=== PATIENT | female | born 1955 | race Caucasian/White ===

== ENCOUNTER 2025-05-25 13:00 | Outpatient (OUT) | payer MEDICARE, OTHER, SELFPAY ==
--- OUTSIDE RECORDS SUMMARY | 2025-05-15 09:00 | XMS_ITS | Continuity of Care Document ---
Author Organization [employer] [facility] Address [address] [facility] [address] [place] [address] Phone Care Team Providers Care Filling Carrier Name Role Phone Martinez Bethea MD, MD Unavailable Unavailable Allergies, Adverse Reactions, Alerts Substance Reaction Status Criticality doxycycline Active No Information POTASSIUM CLAVULANATE Active No Inf ormation AMOXICILLIN TRIHYDRATE Active No In formation Medications Medication Instructions Dosage Effective Dates (start - stop) Status Comments Ozempic 2 mg/dose (8 mg/3 mL) subcutaneous pen injector inject (2MG) by subcutaneous route every week on the same day of each week 2 MG - Active OZEMPIC 4 MG/3 ML (1 MG/DOSE) INJECT 1 MG SUBCUTANEOUSLY ONE TIME PER WEEK -ON THE SAME DAY EACH WEEK - Active BUPROPION HCL XL 150 MG TABLET TAKE 1 TABLET BY MOUTH EVERY DAY - Active KLAYESTA 100,000 UNIT/GM POWD APPLY TO AFFECTED AREA TWICE A DAY - Active Tresiba FlexTouch U-200 insulin 200 unit/mL (3 mL) subcutaneous pen inject 40 units by subcutaneous route qhs - Active GLIPIZIDE ER 10 MG TABLET TAKE 1 TABLET BY MOUTH EVERY DAY WITH BREAKFAST - Active JARDIANCE 25 MG TABLET TAKE 1 TABLET BY MOUTH EVERY DAY IN THE MORNING - Active GABAPENTIN 300 MG CAPSULE TAKE 1 CAPSULE BY MOUTH EVERYDAY AT BEDTIME - Active POTASSIUM CL ER 10 MEQ TAB WAX TAKE 2 TABLETS BY MOUTH EVERY DAY - Active EpiPen 0.3 mg/0.3 mL injection, auto-injector inject 0.3 milliliter by intramuscular route once as needed for anaphylaxis 0.3 MG - Active FUROSEMIDE 40 MG TABLET TAKE 1 TABLET BY MOUTH EVERY DAY NEEDED - Active NOVOLOG 100 UNIT/ML FLEXPEN INJECT 14 UNITS WITH EACH MEAL - Active BD UF SHORT PEN NEEDLE [id number] INJECT INSULIN 4 TIMES PER DAY DX E11.9 - Active FREESTYLE LITE TEST STRIP USE DIRECTED 3 TIMES A DAY DX E11.9 - Active lisinopril 5 mg tablet take 1 tablet by oral route every day 5 MG - Active metoprolol succinate ER 50 mg tablet,extended release 24 hr take 1 tablet by oral route every day 50 MG - Active loratadine 10 mg tablet take 1 tablet by oral route every day 10 MG - Active ipratropium 0.5 mg-albuterol 3 mg (2.5 mg base)/3 mL nebulization soln inhale 3 milliliter by nebulization route 4 times every day 3.00 milliliter - Active aspirin 81 mg tablet,delayed release take 1 tablet by oral route every day 81 MG - Active CLOTRIMAZOLE-BETAM ETHASONE CRM APPLY TOPICALLY TO THE AFFECTED AREA & SURROUNDING AREAS OF SKIN IN THE MORNING AND EVENING NEEDED - Active albuterol sulfate HFA 90 mcg/actuation aerosol inhaler inhale 2 puff by inhalation route every 4 - 6 hours as needed - Active lancets testing BS TID. DX E11.9 - Active simvastatin 40 mg tablet take 1 tablet by oral route every day in the evening 40 MG - Active Procedures Procedure Date GLYCATED HEMOGLOBIN TEST OFFICE/OUTPATIENT VISIT, EST [facility] 20 MIN [facility] SRVC 20 MIN [facility] 20 MIN [facility] 20 MIN GLYCATED HEMOGLOBIN TEST May-20-2025 Removal Impacted Ear Wax Uni W/O Use Of Instrument OFFICE/OUTPATIENT VISIT, EST Complex e/m visit add on [facility] SRVC 20 MIN [facility] SRVC 20 MIN [facility] SRVC 20 MIN [facility] SRVC 20 MIN GLYCATED HEMOGLOBIN TEST OFFICE/OUTPATIENT VISIT, EST [facility] SRVC 20 MIN [facility] SRVC 20 MIN [facility] SRVC 20 MIN GLYCATED HEMOGLOBIN TEST ADMINISTRATION INFLUENZA VACCINE 2023 FLU VACC PRSV FREE INC ANTIG OFFICE/OUTPATIENT VISIT, EST [facility]VC 20 MIN [facility] SRVC 20 MIN [facility] CARE MGMT SVC EA ADDL [facility] SRVC 20 MIN [facility] MGMT SVC EA ADDL [facility] SRVC 20 MIN GLYCATED HEMOGLOBIN TEST OFFICE/OUTPATIENT VISIT, EST Complex e/m visit add on [facility] SRVC 20 MIN [facility] SRVC 20 MIN [facility] SRVC 20 MIN [facility] SRVC 20 MIN GLYCATED HEMOGLOBIN TEST ADMINISTRATION INFLUENZA VACCINE 2022 FLU VACC PRSV FREE INC ANTIG OFFICE/OUTPATIENT VISIT, EST [facility] SRVC 20 MIN CHR[facility] CARE MGMT SVC EA ADDL [facility] SRVC 20 MIN GLYCATED HEMOGLOBIN TEST OFFICE/OUTPATIENT VISIT, EST GLYCATED HEMOGLOBIN TEST OFFICE/OUTPATIENT VISIT, EST TRANS CARE MGMT 14 DAY DISCH ADMINISTRATION INFLUENZA VACCINE 2021 FLU VACC PRSV FREE INC ANTIG ADMINISTRATION PNEUMOCOCCAL VACCINE PNEUMOCOCCAL VACCINE PPPS, SUBSEQUENT VISIT GLYCATED HEMOGLOBIN TEST OFFICE/OUTPATIENT VISIT, EST OFFICE/OUTPATIENT VISIT, EST INITIAL PREVENTIVE EXAM-MEDICARE 2020 ADMINISTRATION PNEUMOCOCCAL VACCINE PNEUMOCOCCAL VACC, 13 [place] IM GLYCATED HEMOGLOBIN TEST OFFICE/OUTPATIENT VISIT, EST GLYCATED HEMOGLOBIN TEST OFFICE/OUTPATIENT VISIT, EST OFFICE/OUTPATIENT VISIT, EST IMMUNIZATION ADMIN FLU VAC NO PRSV 4 GE[place]ES 3 YRS+ OFFICE/OUTPATIENT VISIT, EST GLYCATED HEMOGLOBIN TEST OFFICE/OUTPATIENT VISIT, EST IMMUNIZATION ADMIN FLU VAC NO PRSV 4 [place] 3 YRS+ OFFICE/OUTPATIENT VISIT, EST GLYCATED HEMOGLOBIN TEST OFFICE/OUTPATIENT VISIT, EST ADMINISTRATION INFLUENZA VACCINE 2017 FLU VAC NO PRSV 4 [place] 3 YRS+ OFFICE/OUTPATIENT VISIT, EST GLYCATED HEMOGLOBIN TEST OFFICE/OUTPATIENT VISIT, EST OFFICE/OUTPATIENT VISIT, EST GLYCATED HEMOGLOBIN TEST OFFICE/OUTPATIENT VISIT, EST REMOVE IMPACTED EAR WAX GLYCATED HEMOGLOBIN TEST Betamethasone acet&sod phosp 3mg 2016 DRAIN/INJECT, JOINT/BURSA OFFICE/OUTPATIENT VISIT, EST IMMUNIZATION ADMIN FLU VAC NO PRSV 4 GEOR[place]ES 3 YRS+ OFFICE/OUTPATIENT VISIT, EST OFFICE/OUTPATIENT VISIT, EST IMMUNIZATION ADMIN FLU VAC NO PRSV 4 GEOR[place]ES 3 YRS+ GLYCATED HEMOGLOBIN TEST METHYLPRENDISONE UP TO 80 MG DRAIN/INJECT, JOINT/BURSA OFFICE/OUTPATIENT VISIT, EST OFFICE/OUTPATIENT VISIT, EST GLYCATED HEMOGLOBIN TEST OFFICE/OUTPATIENT VISIT, EST IMMUNIZATION ADMIN FLU VAC NO PRSV 4 GEOR[place] 3 YRS+ OFFICE/OUTPATIENT VISIT, EST OFFICE/OUTPATIENT VISIT, EST GLYCATED HEMOGLOBIN TEST OFFICE/OUTPATIENT VISIT, EST URINALYSIS, AUTO, W/O SCOPE GLUCOSE BLOOD TEST OFFICE/OUTPATIENT VISIT, EST GLYCATED HEMOGLOBIN TEST IMMUNIZATION ADMIN FLU VAC NO PRSV 4 GEORGES 3 YRS+ OFFICE/OUTPATIENT VISIT, EST IMMUNIZATION ADMIN, EACH ADD PNEUMOCOCCAL VACCINE GLYCATED HEMOGLOBIN TEST INJ TENDON SHEATH/LIGAMENT METHYLPRENDISONE UP TO 40 MG OFFICE/OUTPATIENT VISIT, EST Doc meds verified w/pt or re PT TOBACCO SCREEN RCVD TLK Sys BP less 140 Bustamante BP less 90 HG A1C LEVEL 7.0-9.0% LDL-C >= 130 MG/DL NEG MICROALBUMINURIA REV Pt rec CHARLINE/ARB GLYCATED HEMOGLOBIN TEST OFFICE/OUTPATIENT VISIT, EST FLU VACCINE NO PRESERV 3 & > IMMUNIZATION ADMIN OFFICE/OUTPATIENT VISIT, EST Results Test Name Date and Time Measure Units Reference Range Abnormal Flag Status Commen ts Panel Description: Hemoglobin A1c/Hemoglobin.tot al in Blood Final Hgb A1C % 13:13:00 6.6 Final Advance Directives Directive Yes / No Effective Date File Name No Information Encounters Encounter Description Practice Location Reason(s) For Visit Diagnoses Date Provider Providers Copied on Encounter OFFICE/OUTPA TIENT VISIT, EST [employer] [facility], [address] [facility], [place], [place], [id number] , [place] tel: [phone] [facility] follow up (chief complaint) Essential (primary) hypertensionStage 3a chronic kidney disease (CKD)Type 2 diabetes mellitus with diabetic polyneuropathy, with long-term current use of insulinLong term (current) use of insulin Oct-2 0 5 [place]. [address], [place], [place], [address] , [place]. tel: [phone] Referring Provider: Martinez Vizcaino, [address], [place], [address] . tel:[phone] [employer] [facility], [address] [place] [address] [address], [place], [place], [address] , [place] tel: [phone] [facility] No Information 5 [place]. [address], [place], [place], [address] , [place]. tel: [phone] [facility] SRVC 20 MIN [facility] [employer] [facility], [address] [place] [address] [address], [place], [place], [address] , [place] tel: [phone] [facility] No Information 5 [place]. [address], [place], [place], [address] , [place]. tel: [phone] Referring Provider: Martinez Vizcaino, [address], [place], [address] . tel:[phone] [employer] [facility], [address] [place] [address] [address], [place], [place], [address] , [place] tel: [phone] [facility] No Information 5 [place]. [address], [place], [place], [address] , [place]. tel: [phone] [employer] [facility], [address] [place] [address] [address], [place], [place], [address] , [place] tel: [phone] [facility] No Information 5 [place]. [address], [place], [place], [address] , [place]. tel: [phone] [facility] 20 [facility], [address] [place] [address] Road [address], [place], [place], [address] , [place] tel: [phone] [facility] No Information 5 [place]. [address], [place], [place], [address] , [place]. tel: [phone] Referring Provider: Martinez Vizcaino, [address], [place], [address] . tel:[phone] [facility] [address] [facility], [address] [place] [address] [address], [place], [place], [address] , [place] tel: [phone] [facility] No Information 5 [place]. [address], [place], [place], [address] , [place]. tel: [phone] Referring Provider: Martinez Vizcaino, [address], [place], [address] . tel:[phone] [facility], [address] [place] [address] [address], [place], [place], [address] , [place] tel: [phone] [facility] No Information 5 [place]. [address], [place], [place], [address] , [place]. tel: [phone] [facility] [address] [facility], [address] [place] [address] [address], [place], [place], [address] , [place] tel: [phone] [facility] No Information 5 [place]. [address], [place], [place], [address] , [place]. tel: [phone] Referring Provider: Martinez Vizcaino, [address], [place], [address] . tel:[phone] OFFICE/OUTPA TIENT VISIT, [facility], [address] [place] [address] [address], [place], [place], [address] , [place] tel: [phone] [facility] chronic conditions (chief complaint) Type 2 diabetes mellitus with diabetic nephropathy, with long-term current use of insulinBreast cancer screeningCigarette smokerImpacted cerumen, right ear 5 [place]. [address], [place], [place], [address] , [place]. tel:[phone] Referring Provider: Martinez Vizcaino, [address], [place], [address] . tel:[phone] [place] [address], [address] [place] [address] [address], [place], [place], [address] , [place] tel:[phone] [facility] No Information 5 [place]. [address], [place], [place], [address] , [place]. tel:[phone] [facility] [address], [address] [place] [address] [address], [place], [place], [address] , [place] tel:[phone] [facility] No Information 5 [place]. [address], [place], [place], [address] , [place]. tel:[phone] Referring Provider: Martinez Vizcaino, [address], [place], [address] . tel:[phone], [address] [place] [address] [address], [place], [place], [address] , [place] tel:[phone] [facility] No Information 5 [place]. [address], [place], [place], [address] , [place]. tel:[phone] Referring Provider: Martinez Vizcaino, [address], [place], [address] . tel:[phone] [facility] [address], [address] [place] [address] [address], [place], [place], [address] , [place] tel: [phone] [facility] No Information 5 [place]. [address], [place], [place], [address] , [place]. tel: [phone] Referring Provider: Martinez Vizcaino, [address], [place], [address] . tel:[phone] [place] [address], [address] [place] [address] [address], [place], [place], [address] , [place] tel:[phone] [facility] No Information 5 [place]. [address] [facility] [address], [place], [place], [address] , [place]. tel:[phone], [address] [place] [address] [address], [place], [place], [address] , [place] tel: [phone] [facility] No Information 5 [place]. [address] [facility] [address], [place], [place], [address] , [place]. tel:[phone] Referring Provider: Martinez Vizcaino, [address], [place], [address] . tel:[phone] OFFICE/OUTPA TIENT VISIT, [facility], [address] [place] [address] [address], [place], [place], [address] , [place] tel: [phone] [facility] chronic conditions (chief complaint) HypomagnesemiaType 2 diabetes mellitus with diabetic nephropathy, with long-term current use of insulin 5 [place]. [address], [place], [place], [address] , [place]. tel:[phone] Referring Provider: Martinez Vizcaino, [address], [place], [address] . tel:[phone] [facility] SRVC [address] [place] [address], [address] [place] [address] Road [address], [place], [place], [address] , [place] tel: [phone] [facility] No Information 4 [place]. [address], [place], [place], [address] , [place]. tel:[phone] Referring Provider: Martinez Vizcaino, [address], [place], [address] . tel:[phone] [facility] [address], [address] [place] [address] [address], [place], [place], [address] , [place] tel:[phone] [facility] No Information 4 [place]. [address], [place], [place], [address] , [place]. tel:[phone] Referring Provider: Martinez Vizcaino, [address], [place], [address] . tel:[phone] [facility] [address], [address] [place] [address] Road [address], [place], [place], [address] , [place] tel: [phone] [facility] No Information 4 [place]. [address], [place], [place], [address] , [place]. tel:[phone] Referring Provider: Martinez Vizcaino, [address], [place], [address] . tel:[phone] OFFICE/OUTPA TIENT VISIT, [facility], [address], [place], [place], [address] , [place] tel: [phone] [facility] chronic conditions (chief complaint) Type 2 diabetes mellitus with diabetic nephropathy, with long-term current use of insulinEssential (primary) hypertension 4 [place]. [address], [place], [place], [address] , [place]. tel:[phone] Referring Provider: Martinez Vizcaino, [address], [place], [address] . tel:[phone] [facility], [address] [place] [address] [address], [place], [place], [address] , [place] tel: [phone] [facility] No Information 4 [place]. [address], [place], [place], [address] , [place]. tel: [phone] [facility] [address] [facility], [address] [place] [address] [address], [place], [place], [address] , [place] tel: [phone] [facility] No Information 4 [place]. [address], [place], [place], [address] , [place]. tel:[phone] Referring Provider: Martinez Vizcaino, [address], [place], [address] . tel:[phone], [address] [place] [address] [address], [place], [place], [address] , [place] tel:[phone] [facility] No Information 4 [place]. [address], [place], [place], [address] , [place]. tel:[phone] Referring Provider: Martinez Vizcaino, [address], [place], [address] . tel:[phone] [employer] [facility], [address] [place] [address] [address], [place], [place], [address] , [place] tel: [phone] [facility] No Information [address] [place]. [address] [facility] [address], [place], [place], [address] , [place]. tel: [phone] [facility] [address], [address] [place] [address] [address], [place], [place], [address] , [place] tel: [phone] [facility] No Information [address] [place]. [address], [place], [place], [address] , [place]. tel: [phone] Referring Provider: Martinez Vizcaino, [address] [place] [address] [address], [place], [address] . tel:[phone] [facility] [address], [address] [place] [address] [address], [place], [place], [address] , [place] tel: [phone] [facility] No Information 4 [place]. [address] [facility] [address], [place], [place], [address] , [place]. tel:[phone] Referring Provider: Martinez Vizcaino, [address] [place] [address] Rd [address], [place], [address] . tel:[phone] OFFICE/OUTPA TIENT VISIT, [facility], [address] [place] [address] [address], [place], [place], [address] , [place] tel: [phone] [facility] f/u (chief complaint) Type 2 diabetes mellitus with diabetic nephropathy, with long-term current use of insulinStage 3a chronic kidney disease (CKD) 4 [place]. [address] [facility] [address], [place], [place], [address] , [place]. tel:[phone] Referring Provider: Martinez Vizcaino, [address] [place] [address] [address], [place], [address] . tel:[phone] [facility] 20 [facility], [address], [place], [place], [address] , [place] tel: [phone] [facility] No Information 4 [place]. [address], [place], [place], [address] , [place]. tel:[phone] Referring Provider: Martinez Vizcaino, [address], [place], [address] . tel:[phone] [facility] [address] [facility], [address] [place] [address] [address], [place], [place], [address] , [place] tel: [phone] [facility] No Information [address] [place]. [address], [place], [place], [address] , [place]. tel:[phone] Referring Provider: Martinez Vizcaino, [address], [place], [address] . tel:[phone] [facility], [address] [place] [address] [address], [place], [place], [address] , [place] tel:[phone] [facility] No Information 4 [place]. [address], [address], [place], [place], [address] , [place]. tel:[phone] [facility] 20 [facility], [address], [place], [place], [address] , [place] tel:[phone] [facility] No Information [address] [place]. [address], [place], [place], [address] , [place]. tel:[phone] Referring Provider: Martinez Vizcaino, [address] [place] [address] Rd [address], [place], [address] . tel:[phone] [facility] [address] [facility], [address] [place] [address] [address], [place], [place], [address] , [place] tel:[phone] [facility] No Information [address] [place]. [address] [facility] [address], [place], [place], [address] , [place]. tel:[phone] Referring Provider: Martinez Vizcaino, [address] [place] [address] [address], [place], [address] . tel:[phone] OFFICE/OUTPA TIENT VISIT, [facility], [address] [place] [address] [address], [place], [place], [address] , [place] tel:[phone] [facility] f/u (chief complaint) Breast cancer screeningCigarette smokerInfluenza vaccine administeredType 2 diabetes mellitus without complication, with long-term current use of insulinAcute pain of right shoulder 3 [place]. [address] [facility] [address], [place], [place], [address] , [place]. tel:[phone] Referring Provider: Martinez Vizcaino, [address] [place] [address] [address], [place], [address] . tel:[phone] [facility] [address], [address] [place] [address] [address], [place], [place], [address] , [place] [phone] [facility] No Information [address] [place]. [address] [facility] [address], [place], [place], [address] , [place]. tel:[phone] Referring Provider: Martinez Vizcaino, [address] [place] [address] [address], [place], [address] . tel:[phone], [address] [place] [address] [address], [place], [place], [address] , [place] [phone] [facility] No Information [address] [place]. [address] [facility] [address], [place], [place], [address] , [place]. tel:[phone] Referring Provider: Martinez Vizcaino, [address] [facility] [address], [place], [address] . tel:[phone] OFFICE/OUTPA TIENT VISIT, [facility], [address] [place] [address] [address], [place], [place], [address] , [place] tel: [phone] [facility] DM f/u (chief complaint) Type 2 diabetes mellitus with hyperglycemia, with long-term current use of insulinAcute systolic heart failure 3 [place]. [address] [facility] [address], [place], [place], [address] , [place]. tel:[phone] Referring Provider: Martinez Vizcaino, [address], [place], [address] . tel:[phone] [place] [address], [address] [place] [address] [address], [place], [place], [address] , [place] tel:[phone] [facility] No Information [address] [place]. [address] [facility] [address], [place], [place], [address] , [place]. tel:[phone] OFFICE/OUTPA TIENT VISIT, [facility], [address] [place] [address] [address], [place], [place], [address] , [place] tel: [phone] [facility] chronic conditions (chief complaint) Type 2 diabetes mellitus with hyperglycemia, with long-term current use of insulinGastroesopha geal reflux disease, unspecified whether esophagitis presentAcute systolic heart failure 3 [place]. [address] [facility] [address], [place], [place], [address] , [place]. tel:[phone] Referring Provider: Martinez Vizcaino, [address], [place], [address] . tel:[phone] [facility] 14 DAY [facility], [address] [place] [address] [address], [place], [place], [address] , [place] tel: [phone] [facility] TCM (chief complaint) Type 2 diabetes mellitus without complication, with long-term current use of insulinAcute systolic heart failureTobacco abuse 3 [place]. [address], [place], [place], [address] , [place]. tel: [phone] Referring Provider: Martinez Vizcaino, [address], [place], [address] . tel:[phone] [employer] [facility], [address] [place] [address] [address], [place], [place], [address] , [place] tel: [phone] [facility] No Information [address] [place]. [address] [facility] [address], [place], [place], [address] , [place]. tel: [phone] [employer] [facility], [address] [place] [address] [address], [place], [place], [address] , [place] tel: [phone] [facility] medicare preventive (chief complaint)AW V (chief complaint) Influenza vaccination givenMedicare annual wellness visit, subsequentType 2 diabetes mellitus without complication, with long-term current use of insulinEssential (primary) hypertensionBreast cancer screeningTobacco abuseHypocalcemiaHy pomagnesemiaColon cancer screeningChronic obstructive pulmonary disease, unspecified COPD typeModerate major depression 2 [place]. [address] [facility] [address], [place], [place], [address] , [place]. tel: [phone] Referring Provider: Martinez Vizcaino, [address] [facility] [address], [place], [address] . tel:[phone] [employer] [facility], [address] [place] [address] [address], [place], [place], [address] , [place] tel: [phone] [facility] No Information [address] [place]. [address] [facility] [address], [place], [place], [address] , [place]. tel: [phone] OFFICE/OUTPA TIENT VISIT, [facility], [address] [place] [address] [address], [place], [place], [address] , [place] tel: [phone] [facility] Hospital med refill, DM (chief complaint) Type 2 diabetes mellitus without complication, with long-term current use of insulinEssential (primary) hypertensionChronic obstructive pulmonary disease, unspecified COPD typeImpacted cerumen, right ear Fe 2 [place]. [address] [facility] [address], [place], [place], [address] , [place]. tel: [phone] Referring Provider: Martinez Vizcaino, [address] [place] [address] [address], [place], [address] . tel:[phone] [place] [address], [address] [place] [address] [address], [place], [place], [address] , [place] tel: [phone] [facility] No Information 2 [place]. [address] [facility] [address], [place], [place], [address] , [place]. tel: [phone] OFFICE/OUTPA TIENT VISIT, [facility], [address] [place] [address] [address], [place], [place], [address] , [place] tel: [phone] [facility] R ear infection (chief complaint) Hearing loss of left ear, unspecified hearing loss type 1 [place]. [address] [facility] [address], [place], [place], [address] , [place]. tel: [phone] Referring Provider: Martinez Vizcaino, [address] [place] [address] [address], [place], [address] . tel:[phone] [facility], [address] [place] [address] [address], [place], [place], [address] , [place] tel: [phone] [facility] medicare preventive (chief complaint) Medicare welcome examEssential (primary) hypertensionHyperch olesterolemiaModera te major depressionType 2 diabetes mellitus without complication, with long-term current use of insulinLong term (current) use of insulinMultinodular goiterTobacco abuseOsteoporosis screeningPost-menop ausalColon cancer screeningPrimary osteoarthritis of right hip 1 [place]. [address], [place], [place], [address] , [place]. tel: [phone] Referring Provider: Martinez Vizcaino, [address], [place], [address] . tel:[phone] [facility], [address] [place] [address] [address], [place], [place], [address] , [place] tel: [phone] [facility] No Information 1 [place]. [address], [place], [place], [address] , [place]. tel: [phone] [facility], [address] [place] [address] [address], [place], [place], [address] , [place] tel: [phone] [facility] No Information 1 [place]. [address] [facility] [address], [place], [place], [address] , [place]. tel:[phone] OFFICE/OUTPA TIENT VISIT, [facility], [address] [place] [address] [address], [place], [place], [address] , [place] tel: [phone] [facility] chronic conditions (chief complaint) Type 2 diabetes mellitus without complication, with long-term current use of insulinLong term (current) use of insulinModerate major depressionHyperchol esterolemiaEssentia l (primary) hypertension 1 [place]. [address], [place], [place], [address] , [place]. tel:[phone] Referring Provider: Martinez Vizcaino, [address], [place], [address] . tel:[phone] OFFICE/OUTPA TIENT VISIT, [facility], [address] [place] [address] [address], [place], [place], [address] , [place] tel: [phone] [facility] chronic conditions (chief complaint) Essential (primary) hypertensionHyperch olesterolemiaPrimar y localized osteoarthritis of left hipType 2 diabetes mellitus with hyperglycemia, with long-term current use of insulinLong term (current) use of insulinCurrent moderate episode of major depressive disorder without prior episode Nov-0 0 [place]. [address] [facility] [address], [place], [place], [address] , [place]. tel: [phone] Referring Provider: Martinez Vizcaino, [address] [place] [address] [address], [place], [address] . tel:[phone] OFFICE/OUTPA TIENT VISIT, [facility], [address] [place] [address] [address], [place], [place], [address] , [place] tel: [phone] [facility] f/u zoloft (chief complaint)re fill simvastatin (chief complaint) Major depressive disorder, single episode, moderate Sep-0 0 [place]. [address] [facility] [address], [place], [place], [address] , [place]. tel: [phone] Referring Provider: Martinez Vizcaino, [address] [place] [address] [address], [place], [address] . tel:[phone] OFFICE/OUTPA TIENT VISIT, [facility], [address] [place] [address] [address], [place], [place], [address] , [place] tel: [phone] [facility] chronic conditions (chief complaint) Current moderate episode of major depressive disorder without prior episodeEssential (primary) hypertensionHyperch olesterolemiaType 2 diabetes mellitus without complication Aug- 0 [place]. [address] [facility] [address], [place], [place], [address] , [place]. tel: [phone] Referring Provider: Martinez Vizcaino, [address], [place], [address] . tel:[phone] OFFICE/OUTPA TIENT VISIT, [facility], [address] [place] [address] [address], [place], [place], [address] , tel: [phone] [facility] chronic conditions (chief complaint) Type 2 diabetes mellitus without complicationEssenti al (primary) hypertensionHyperch olesterolemiaBreast cancer screeningMultinodul ar goiterPrimary localized osteoarthritis of left hip 0 0 [place]. [address] [facility] [address], [place], [place], [address] , [place]. tel: [phone] Referring Provider: Martinez Vizcaino, [address] [place] [address] [address], [place], [address] . tel:[phone] [facility], [address] [place] [address] [address], [place], [place], [address] , tel: [phone] [facility] flu vaccine (chief complaint) No Information [place]. [address] [facility] [address], [place], [place], [address] , [place]. tel:[phone] Referring Provider: Martinez Vizcaino, [address] [facility] [address], [place], [address] . tel:[phone] OFFICE/OUTPA TIENT VISIT, [facility], [address] [place] [address] [address], [place], [place], [address] , [place] tel: [phone] [facility] chronic conditions (chief complaint) Essential (primary) hypertensionHyperch olesterolemiaType 2 diabetes mellitus without complicationBreast cancer screeningMultinodul ar goiter [place]. [address] [facility] [address], [place], [place], [address] , [place]. tel:[phone] Referring Provider: Martinez Vizcaino, [address] [place] [address] [address], [place], [address] . tel:[phone] OFFICE/OUTPA TIENT VISIT, [employer] [place] [employer] [facility], [address] [place] [address] [address], [place], [place], [address] , [place] tel: [phone] [facility] chronic conditions (chief complaint) Essential (primary) hypertensionHyperch olesterolemiaType 2 diabetes mellitus without complicationLeg crampsMeralgia paresthetica of left side 9 [place]. [address] [facility] [address], [place], [place], [address] , [place]. tel: [phone] Referring Provider: Martinez Vizcaino, [address] [place] [address] [address], [place], [address] . tel:[phone] OFFICE/OUTPA TIENT VISIT, [employer] [facility], [address] [place] [address] [address], [place], [place], [address] , [place] tel: [phone] [facility] chronic conditions (chief complaint) Essential (primary) hypertensionPrimary osteoarthritis of right hipPrimary localized osteoarthritis of left hipHypercholesterol emiaType 2 diabetes mellitus without complicationThyroid noduleGastroesophag eal reflux disease, esophagitis presence not specified 8 [place]. [address] [facility] [address], [place], [place], [address] , [place]. tel: [phone] Referring Provider: Martinez Vizcaino, [address] [facility] [address], [place], [address] . tel:[phone] OFFICE/OUTPA TIENT VISIT, [employer] [facility], [address] [place] [address] [address], [place], [place], [address] , [place] tel: [phone] [facility] chronic conditions (chief complaint) Essential (primary) hypertensionHypokal emiaHypocalcemiaHyp ercholesterolemiaTy pe 2 diabetes mellitus without complicationThyroid noduleBreast cancer screening 8 [place]. [address] [facility] [address], [place], [place], [address] , [place]. tel: [phone] Referring Provider: Martinez Vizcaino, [address], [place], [address] . tel:[phone] OFFICE/OUTPA TIENT VISIT, [facility] [employer] (formerly [employer]) [facility], [address], [place], [place], [address] , [place] tel: [phone] [facility] chronic conditions (chief complaint) Primary osteoarthritis of right hipPrimary localized osteoarthritis of left hip Oct- [place]. [address], [place], [place], [address] , [place]. tel: [phone] Referring Provider: Martinez Vizcaino, [address], [place], [address] . tel:[phone] OFFICE/OUTPA TIENT VISIT, [facility] [employer] ([employer]) [facility], [address] [place] [address] [address], [place], [place], [address] , [place] tel: [phone] [facility] chronic conditions (chief complaint) Essential (primary) hypertensionHypokal emiaHypocalcemiaHyp ercholesterolemiaTy pe 2 diabetes mellitus without complicationImpacte d cerumen of left ear [place]. [address], [place], [place], [address] , [place]. tel: [phone] Referring Provider: Martinez Vizcaino, [address], [place], [address] . tel:[phone] [employer] [facility], [address] [place] [address] [address], [place], [place], [address] , [place] tel: [phone] [facility] HypocalcemiaHypokal emia Jun- [place]. [address], [place], [place], [address] , [place]. tel: [phone] [employer] ([employer] [facility] [employer] [facility], [address] [place] [address] [address], [place], [place], [address] , [place] tel: [phone] [facility] Hypocalcemia Dec-2 7 [place]. [address] [facility] [address], [place], [place], [address] , [place]. tel: [phone] OFFICE/OUTPA TIENT VISIT, [facility], [address] [place] [address] [address], [place], [place], [address] , [place] tel: [phone] [facility] chronic conditions (chief complaint) Essential (primary) hypertensionHypokal emiaHypercholestero lemiaType 2 diabetes mellitus without complicationTrochan teric bursitis of left hipLeg crampsBreast cancer screeningUpper respiratory tract infection, unspecified type Mar-0 7 [place]. [address] [facility] [address], [place], [place], [address] , [place]. tel: [phone] Referring Provider: Martinez Vizcaino, [address] [place] [address] A, [place], [address] . tel:[phone] OFFICE/OUTPA TIENT VISIT, [facility], [address] [place] [address] [address], [place], [place], [address] , [place] tel: [phone] [facility] chronic conditions (chief complaint) HypokalemiaType 2 diabetes mellitus without complicationEssenti al (primary) hypertensionTobacco abuseSkin lesionMuscle cramps November-0 7 [place]. [address] [facility] [address], [place], [place], [address] , [place]. tel: [phone] Referring Provider: Martinez Vizcaino, [address] [place] [address] [address], [place], [address] . tel:[phone] OFFICE/OUTPA TIENT VISIT, [facility], [address] [place] [address] [address], [place], [place], [address] , [place] tel: [phone] [facility] chronic conditions (chief complaint) Other bursitis of hip, left hipEssential (primary) hypertensionType 2 diabetes mellitus without complicationHyperch olesterolemiaMuscle cramps Nov-0 7-201 6 [place]. [address] [facility] [address], [place], [place], [address] , [place]. tel: [phone] Referring Provider: Martinez Vizcaino, [address] [place] [address] Rd [address], [place], [address] . tel:[phone] OFFICE/OUTPA TIENT VISIT, [employer] [facility], [address] [place] [address] [address], [place], [place], [address] , [place] tel: [phone] [facility] chronic conditions (chief complaint)hy pertension (chief complaint)di abetes (chief complaint) Essential (primary) hypertensionHyperch olesterolemiaThyroi d noduleType 2 diabetes mellitus without complicationOther bursitis of hip, left hip 6 [place]. [address] [facility] [address], [place], [place], [address] , [place]. tel: [phone] Referring Provider: Martinez Vizcaino, [address] [place] [address] [address], [place], [address] . tel:[phone] OFFICE/OUTPA TIENT VISIT, [employer] [place] [employer] [facility], [address] [place] [address] [address], [place], [place], [address] , [place] tel: [phone] [facility] chronic conditions (chief complaint) Essential (primary) hypertensionHyperch olesterolemiaType 2 diabetes mellitus without complicationBreast cancer screeningThyroid noduleLumbar stenosisColon polypsHypokalemia 6 [place]. [address] [facility] [address], [place], [address] , [place]. tel: [phone] Referring Provider: Martinez Vizcaino, [address] [place] [address] [address], [place], [address] . tel:[phone] OFFICE/OUTPA TIENT VISIT, [employer] [facility], [address] [place] [address] Road [address], [place], [place], [address] , [place] tel: [phone] [facility] chronic conditions (chief complaint) Hypercholesterolemi aType 2 diabetes mellitus without complicationEssenti al (primary) hypertensionLumbar stenosis 6 [place]. [address] [facility] [address], [place], [place], [address] , [place]. tel: [phone] Referring Provider: Martinez Vizcaino, [address] [facility] [address], [place], [address] . tel:[phone] OFFICE/OUTPA TIENT VISIT, [employer] [place] [employer] [facility], [address] [place] [address] [address], [place], [place], [address] , [place] tel: [phone] [facility] chronic conditions (chief complaint) Diabetes mellitus without mention of complication, type II or unspecified type, not stated as uncontrolledEsophag eal refluxOther and unspecified hyperlipidemiaEssen tial hypertension, benign [place]. [address] [facility] [address], [place], [place], [address] , [place]. tel: [phone] Referring Provider: Martinez Vizcanio, [address] [facility] [address], [place], [address] . tel:[phone] OFFICE/OUTPA TIENT VISIT, [facility], [address] [place] [address] [address], [place], [place], [address] , [place] tel: [phone] [facility] B hip/ BLE pain (chief complaint) Bilateral hip bursitisLumbar stenosis 5 [place]. [address] [facility] [address], [place], [place], [address] , [place]. tel: [phone] Referring Provider: Martinez Vizcaino, [address] [place] [address] [address], [place], [address] . tel:[phone] OFFICE/OUTPA TIENT VISIT, [facility], [address] [place] [address] [address], [place], [place], [address] , [place] tel: [phone] [facility] chronic conditions (chief complaint) Diabetes Mellitus Type 2, UncomplicatedLeg crampsEustachian tube dysfunction Apr-2 0 5 [place]. [address], [place], [place], [address] , [place]. tel:[phone] Referring Provider: Martinez Vizcaino, [address] [place] [address] Rd [address], [place], [address] . tel:[phone] OFFICE/OUTPA TIENT VISIT, [facility], [address] [facility] [address], [place], [place], [address] , [place] tel:[phone] [facility] midsection pain (chief complaint) Urinary frequencyDiabetes Mellitus Type 2, UncomplicatedLBP (low back pain) 5 [place]. [address], [place], [place], [address] , [place]. tel:[phone] Referring Provider: Martinez Vizcaino, [address] [place] [address] [address], [place], [address] . tel:[phone] OFFICE/OUTPA TIENT VISIT, [employer] [place] [employer] [facility], [address] [place] [address] [address], [place], [place], [address] , [place] tel:[phone] [facility] chronic conditions (chief complaint) Diabetes mellitus without mention of complication, type II or unspecified type, not stated as uncontrolledEssenti al hypertension, benignHypercholeste rolemiaLateral epicondylitis of elbowLeg cramps 4 [place]. [address], [place], [place], [address] , [place]. tel:[phone] Referring Provider: Martinez Vizcaino, [address] [place] [address] Rd [address], [place], [address] . tel:[phone] OFFICE/OUTPA TIENT VISIT, [employer] [facility], [address] [facility] [address], [place], [place], [address] , [place] tel:[phone] [facility] chronic conditions (chief complaint) Diabetes mellitus without mention of complication, type II or unspecified type, not stated as uncontrolledHyperch olesterolemiaHypert ensionTrigger fingerBreast cancer screening 4 [place]. [address] [facility] [address], [place], [place], [address] , [place]. tel: [phone] Referring Provider: Martinez Vizcaino, [address] [facility] [address], [place], [address] . tel:[phone] OFFICE/OUTPA TIENT VISIT, [facility], [address] [place] [address] [address], [place], [place], [address] , [place] tel: [phone] [facility] chronic conditions (chief complaint)R hand pain (chief complaint)di arrhea (chief complaint) Diabetes mellitus without mention of complication, type II or unspecified type, not stated as uncontrolledHyperch olesterolemiaDiarrh eaHypertension 4 [place]. [address] [facility] [address], [place], [place], [address] , [place]. tel: [phone] Referring Provider: Martinez Vizcaino, [address] [facility] [address], [place], [address] . tel:[phone] [place] [address], [address] [place] [address] [address], [place], [place], [address] , [place] tel: [phone] [facility] Influenza Vaccine 3 [place]. [address] [facility] [address], [place], [place], [address] , [place]. tel: [phone] [facility], [address] [place] [address] [address], [place], [place], [address] , [place] tel: [phone] [facility] Diabetes Mellitus Type 2, UncomplicatedGERDHy percholesterolemia 3 [place]. [address] [facility] [address], [place], [place], [address] , [place]. tel: [phone] OFFICE/OUTPA TIENT VISIT, [facility], [address] [place] [address] [address], [place], [place], [address] , [place] tel: [phone] [facility] No Information [place]. [address] [facility] [address], [place], [place], [address] , [place]. tel: [phone] Referring Provider: Martinez Vizcaino, [address] [facility] [address], [place], [address] . tel:[phone] Family History Family Member Type Diagnosis Age At Onset No Information Immunizations Vaccine Date Status Comments Fluzone HD administered Source: New Imm unization Record FLUZONE HIGH-DOSE QUAD administer ed Source: New Immunization Record Pneumo (2 yrs or older) (PPV23) administered Source: New Immuniza tion Record Influenza, quadrivalent, hig h dose, injectable, split virus, preservative free, 0.7 mL dose, Fluzone High-Dose Quad administered Source: New Immuniza tion Record Zostavax administered Source: Other P rovider Zostavax administered Source: Other P rovider SARS-COV-2 (COVID-19) vaccin e, vector non-replicating, recombinant spike protein-Ad26, preservative free, 0.5 mL ([employer]) administered Source: Other Pro vider Prevnar administered Source: New Imm unization Record SARS-COV-2 (COVID-19) vaccin e, mRNA, spike protein, LNP, preservative free, 30 mcg/0.3mL dose (Solvate) administered Source: Other Pr ovider SARS-COV-2 (COVID-19) vaccin e, mRNA, spike protein, LNP, preservative free, 30 mcg/0.3mL dose (Solvate) administered Source: Other Pr ovider Influenza, injectable, quadrivalent, preservative free, 3 yrs or older administered Source: New Immuniz ation Record Flu Vaccine [id number] administered Source : New Immunization Record FLUZONE QUAD administered Sourc e: New Immunization Record Influenza, injectable, quadrivalent, preservative free, 3 yrs or older administered Note: pt tolerated well ; Source: New Immunization Record Influenza, injectable, quadrivalent, preservative free, split virus 3 years or older, Fluarix Quad administered Note: pt t olerated well ; Source: New Immunization Record Fluarix administered Source: New Imm unization Record Zoster administered Note: Invalid d ocumented admin date was /NULL/2014. ; Source: Other Provider Pneumo (2 yrs or older) (PPV23) administered Source: New Immuniza tion Record Fluarix administered Source: New Imm unization Record flu (split) preservative jason e, 3 yrs or older administered Source: New Immuniza tion Record Payers Payer name Insurance type Covered democrat ID Authoriza tion(s) Medicare MB [id number] [employer] CI [id number] Medicare MB [id number] [employer] CI [id number] Medicare MB [id number] [employer] CI [id number] Medicare MB [id number] [employer] CI [id number] Medicare MB [id number] [employer] CI [id number] Medicare MB [id number] [employer] CI [id number] [employer] CI [id number] [employer] CI [id number] [employer] CI [id number] [employer] CI [id number] [employer] CI [id number] [employer] CI [id number] [employer] CI [id number] [employer] CI [id number] Social History Type Description Quantity Date Captured Comments Alcohol Use Details No Caffeine Use Details Unknown Tobacco Use Status Smoking Status Heavy tobacco smoker Sex Female Vital Signs Date / Time: Height Weight BMI Pulse Rate Blood Pressure Temperature Respiratory Rate Body Surface Area Head Circumference Head Circ. Percentile Wt./Apolinar. Percentile BMI percentile Pulse Ox Inhaled Ox 12:59 PM 65.00 in 109.769 kg (242.00 lbs) 40.2 7 kg/m eter (2) 85 /min 138/84 mm[Hg] 98 % Chief Complaint And Reason For Visit From encounter dated '05/15/2025 13:00'. follow up (chief complaint). Description: Reviewed labs 12/08/24. Last DEXA 03/27/21. Last mammogram 10/09/23.DM - Last A1C 6.6% on 12/13/24. Last eye exam 04/824, no retinopathy.Depression, CKD - Taking medication as prescribedHTN, Heart Failure, Hypercholesterolemia - Managed by cardiologystates it feels like she is [facility] Reason For Referral Reason For Referral No Information Plan Of Treatment Date Type Action Status Goal ECG. Due on due Goal Foot exam. Due on due Goal Dilated eye exam. Due on Apr due Goal Dental exam. Due on 025 due Goal Tobacco screening. Due on Oc due Goal [employer] ADMINISTRATOR/Breast exam. Due on due Goal Zoster vaccine (1st) due Goal Td vaccine. Due on due Goal Zoster vaccine (2nd) due Goal Pneumococcal vaccine. Due on due Goal Influenza vaccine. Due on Oc due Goal Microalb/Creat Ratio, Randm Ur. Due on due Goal IFOB. Due on due Goal FIT. Due on due Goal Pap liquid based for cytolog y. Due on due Goal Cytology report of Cervical and vaginal smear or scraping Cyto stain. Due on due Goal FOBT. Due on due Goal FIT-DNA. Due on due Goal Glucose. Due on due Goal Hepatitis C screening. Due o n due Goal Pap/HPV testing. Due on due Goal Diabetes screening. Due on O due Goal BMP. Due on due Goal URINALYSIS NONAUTO W/O SCOPE . Due on due Goal Unhealthy drug use screening . Due on due Goal Depression screening. Due on due Goal EKG. Due on due Goal Mammogram. Due on due Goal Colonoscopy. Due on 025 due Goal Digital Mammogram Screening. Due on due Goal CT-Colonography. Due on due Goal Hemoglobin A1C. Due on due Goal Urine microalbumin. Due on O due Goal ASCVD 10 year risk. Due on O due Goal Monofilament. Due on 2024 due Goal pouncer machine. Due on Oc due Goal GFR. Due on due Goal pouncer machine. Due on Au due Goal FIT-DNA. Due on due Goal FIT. Due on due Goal IFOB. Due on due Goal Glucose. Due on due Goal BMP. Due on due Goal Diabetes screening. Due on A due Goal GFR. Due on due Goal Urine microalbumin. Due on A due Goal Microalb/Creat Ratio, Randm Ur. Due on due Goal Hemoglobin A1C. Due on due Goal URINALYSIS NONAUTO W/O SCOPE . Due on due Goal ASCVD 10 year risk. Due on A due Goal Unhealthy drug use screening . Due on due Goal Depression screening. Due on due Goal Pap/HPV testing. Due on due Goal Pap liquid based for cytolog y. Due on due Goal Digital Mammogram Screening. Due on due Goal EKG. Due on due Goal Colonoscopy. Due on due Goal Mammogram. Due on due Goal CT-Colonography. Due on due Goal ECG. Due on due Goal Dental exam. Due on due Goal LINUX NETWORK ADMINISTRATOR/Breast exam. Due on due Goal Tobacco screening. Due on due Goal Foot exam. Due on due Goal Monofilament. Due on 2024 due Goal Dilated eye exam. Due on Apr due Goal Zoster vaccine (2nd) due Goal Zoster vaccine (1st) due Goal Td vaccine. Due on due Goal Pneumococcal vaccine. Due on due Goal Influenza vaccine. Due on due Goal Hepatitis C screening. Due o n due Goal FOBT. Due on due Goal Cytology report of Cervical and vaginal smear or scraping Cyto stain. Due on due Goal Pap liquid based for cytolog y. Due on due Goal Cytology report of Cervical and vaginal smear or scraping Cyto stain. Due on due Goal FOBT. Due on due Goal Glucose. Due on due Goal IFOB. Due on due Goal BMP. Due on due Goal Hepatitis C screening. Due o n due Goal Pap/HPV testing. Due on due Goal FIT-DNA. Due on due Goal FIT. Due on due Goal Diabetes screening. Due on due Goal URINALYSIS NONAUTO W/O SCOPE . Due on due Goal ASCVD 10 year risk. Due on due Goal Unhealthy drug use screening . Due on due Goal Depression screening. Due on due Goal Urine microalbumin. Due on due Goal GFR. Due on due Goal Hemoglobin A1C. Due on due Goal Microalb/Creat Ratio, Randm Ur. Due on due Goal pouncer machine. Due on due Goal Influenza vaccine. Due on Oc due Goal Pneumococcal vaccine. Due on due Goal Zoster vaccine (2nd) due Goal Zoster vaccine (1st) due Goal Td vaccine. Due on due Goal Tobacco screening. Due on due Goal LINUX NETWORK ADMINISTRATOR/Breast exam. Due on due Goal Dilated eye exam. Due on Apr due Goal Monofilament. Due on 2024 due Goal Dental exam. Due on due Goal Foot exam. Due on due Goal ECG. Due on due Goal EKG. Due on due Goal Colonoscopy. Due on due Goal Mammogram. Due on due Goal CT-Colonography. Due on due Goal Digital Mammogram Screening. Due on due Goal Mammogram. Due on due Goal EKG. Due on due Goal Foot exam. Due on due Goal Dilated eye exam. Due on Apr due Goal Dental exam. Due on due Goal Monofilament. Due on 2024 due Goal LINUX NETWORK ADMINISTRATOR/Breast exam. Due on due Goal Tobacco screening. Due on due Goal Zoster vaccine (1st) due Goal Td vaccine. Due on due Goal Zoster vaccine (2nd) due Goal pouncer machine. Due on due Goal Urine microalbumin. Due on due Goal Hemoglobin A1C. Due on due Goal GFR. Due on due Goal Microalb/Creat Ratio, Randm Ur. Due on due Goal FIT-DNA. Due on due Goal Pap/HPV testing. Due on due Goal FOBT. Due on due Goal Hepatitis C screening. Due o n due Goal Glucose. Due on due Goal Cytology report of Cervical and vaginal smear or scraping Cyto stain. Due on due Goal IFOB. Due on due Goal Pap liquid based for cytolog y. Due on due Goal FIT. Due on due Goal URINALYSIS NONAUTO W/O SCOPE . Due on due Goal ASCVD 10 year risk. Due on due Goal Unhealthy drug use screening . Due on due Goal Depression screening. Due on due Goal Colonoscopy. Due on due Goal Digital Mammogram Screening. Due on due Goal CT-Colonography. Due on due Goal ECG. Due on due Goal Influenza vaccine. Due on Oc due Goal Pneumococcal vaccine. Due on due Goal Diabetes screening. Due on J due Goal BMP. Due on due Goal LINUX NETWORK ADMINISTRATOR/Breast exam. Due on due Goal Td vaccine. Due on due Goal Zoster vaccine (2nd) due Goal Influenza vaccine. Due on Oc due Goal FIT-DNA. Due on due Goal Hepatitis C screening. Due o n due Goal FOBT. Due on due Goal Cytology report of Cervical and vaginal smear or scraping Cyto stain. Due on due Goal Glucose. Due on due Goal Diabetes screening. Due on O due Goal BMP. Due on due Goal URINALYSIS NONAUTO W/O SCOPE . Due on due Goal Unhealthy drug use screening . Due on due Goal Depression screening. Due on due Goal CT-Colonography. Due on due Goal EKG. Due on due Goal Digital Mammogram Screening. Due on due Goal Colonoscopy. Due on due Goal Mammogram. Due on 6 due Goal ECG. Due on due Goal Foot exam. Due on due Goal Dental exam. Due on due Goal Dilated eye exam. Due on Mar due Goal Monofilament. Due on 2023 due Goal Pneumococcal vaccine. Due on due Goal Zoster vaccine (1st) due Goal pouncer machine. Due on Oc due Goal Microalb/Creat Ratio, Randm Ur. Due on due Goal Urine microalbumin. Due on O due Goal GFR. Due on due Goal Hemoglobin A1C. Due on due Goal Pap/HPV testing. Due on due Goal IFOB. Due on due Goal FIT. Due on due Goal Pap liquid based for cytolog y. Due on due Goal ASCVD 10 year risk. Due on O due Goal EKG. Due on due Goal Mammogram. Due on due Goal Digital Mammogram Screening. Due on due Goal Colonoscopy. Due on due Goal Dilated eye exam. Due on Mar due Goal LINUX NETWORK ADMINISTRATOR/Breast exam. Due on due Goal Zoster vaccine (1st) due Goal Zoster vaccine (2nd) due Goal Td vaccine. Due on due Goal Influenza vaccine. Due on due Goal Pneumococcal vaccine. Due on due Goal pouncer machine. Due on due Goal Microalb/Creat Ratio, Randm Ur. Due on due Goal GFR. Due on due Goal Urine microalbumin. Due on due Goal Hemoglobin A1C. Due on due Goal Glucose. Due on due Goal Pap/HPV testing. Due on due Goal FOBT. Due on due Goal Hepatitis C screening. Due o n due Goal FIT-DNA. Due on due Goal Pap liquid based for cytolog y. Due on due Goal IFOB. Due on due Goal FIT. Due on due Goal Cytology report of Cervical and vaginal smear or scraping Cyto stain. Due on due Goal Diabetes screening. Due on due Goal BMP. Due on due Goal URINALYSIS NONAUTO W/O SCOPE . Due on due Goal ASCVD 10 year risk. Due on due Goal Unhealthy drug use screening . Due on due Goal Depression screening. Due on due Goal CT-Colonography. Due on due Goal Foot exam. Due on due Goal Dental exam. Due on 024 due Goal Monofilament. Due on 2023 due Goal ECG. Due on due Goal Dilated eye exam. Due on Mar due Goal Monofilament. Due on 2022 due Goal Foot exam. Due on due Goal LINUX NETWORK ADMINISTRATOR/Breast exam. Due on due Goal Td vaccine. Due on due Goal Zoster vaccine (2nd) due Goal Zoster vaccine (1st) due Goal Influenza vaccine. Due on No due Goal Pneumococcal vaccine. Due on due Goal pouncer machine. Due on No due Goal Hemoglobin A1C. Due on due Goal Microalb/Creat Ratio, Randm Ur. Due on due Goal Urine microalbumin. Due on N due Goal GFR. Due on due Goal FOBT. Due on due Goal FIT. Due on due Goal IFOB. Due on due Goal Cytology report of Cervical and vaginal smear or scraping Cyto stain. Due on due Goal Pap liquid based for cytolog y. Due on due Goal Glucose. Due on due Goal Hepatitis C screening. Due o n due Goal Pap/HPV testing. Due on due Goal FIT-DNA. Due on due Goal Diabetes screening. Due on N due Goal BMP. Due on due Goal URINALYSIS NONAUTO W/O SCOPE . Due on due Goal ASCVD 10 year risk. Due on N due Goal Unhealthy drug use screening . Due on due Goal Depression screening. Due on due Goal ECG. Due on due Goal Colonoscopy. Due on due Goal Digital Mammogram Screening. Due on due Goal Mammogram. Due on due Goal CT-Colonography. Due on due Goal EKG. Due on due Goal Dental exam. Due on due Goal Hemoglobin A1C. Due on due Goal Microalb/Creat Ratio, Randm Ur. Due on due Goal GFR. Due on due Goal Urine microalbumin. Due on due Goal Hepatitis C screening. Due o n due Goal FIT-DNA. Due on due Goal Pap liquid based for cytolog y. Due on due Goal Cytology report of Cervical and vaginal smear or scraping Cyto stain. Due on due Goal FOBT. Due on due Goal Glucose. Due on due Goal BMP. Due on due Goal IFOB. Due on due Goal Pap/HPV testing. Due on due Goal FIT. Due on due Goal Diabetes screening. Due on due Goal URINALYSIS NONAUTO W/O SCOPE . Due on due Goal ASCVD 10 year risk. Due on due Goal Unhealthy drug use screening . Due on due Goal Depression screening. Due on due Goal Td vaccine. Due on due Goal Pneumococcal vaccine. Due on due Goal Influenza vaccine. Due on due Goal pouncer machine. Due on due Goal CT-Colonography. Due on due Goal Colonoscopy. Due on due Goal Mammogram. Due on 4 due Goal Digital Mammogram Screening. Due on due Goal EKG. Due on due Goal ECG. Due on due Goal Foot exam. Due on due Goal Monofilament. Due on 2022 due Goal Dilated eye exam. Due on Dec due Goal Dental exam. Due on due Goal LINUX NETWORK ADMINISTRATOR/Breast exam. Due on due Goal Zoster vaccine (2nd) due Goal Zoster vaccine (1st) due Goal pouncer machine. Due on Ap due Goal Microalb/Creat Ratio, Randm Ur. Due on due Goal GFR. Due on due Goal Urine microalbumin. Due on A due Goal Hemoglobin A1C. Due on due Goal Cytology report of Cervical and vaginal smear or scraping Cyto stain. Due on due Goal FIT. Due on due Goal Pap liquid based for cytolog y. Due on due Goal IFOB. Due on due Goal FIT-DNA. Due on due Goal Pap/HPV testing. Due on due Goal FOBT. Due on due Goal Glucose. Due on due Goal Hepatitis C screening. Due o n due Goal Diabetes screening. Due on A due Goal BMP. Due on due Goal URINALYSIS NONAUTO W/O SCOPE . Due on due Goal ASCVD 10 year risk. Due on A due Goal Unhealthy drug use screening . Due on due Goal Depression screening. Due on due Goal Colonoscopy. Due on 023 due Goal Digital Mammogram Screening. Due on due Goal Mammogram. Due on [address]-Colon[address]. Due on due Goal EKG. Due on due Goal ECG. Due on due Goal Monofilament. Due on 2022 due Goal Foot exam. Due on 3 due Goal Dental exam. Due on 023 due Goal Dilated eye exam. Due on Dec due Goal LINUX NETWORK ADMINISTRATOR/Breast exam. Due on due Goal Zoster vaccine (1st) due Goal Zoster vaccine (2nd) due Goal Td vaccine. Due on 23 due Goal Pneumococcal vaccine. Due on due Goal Influenza vaccine. Due on due Goal Mammogram. Due on 4 due Goal Dilated eye exam. Due on Dec due Goal Td vaccine. Due on due Goal Zoster vaccine (1st) due Goal pouncer machine. Due on due Goal Urine microalbumin. Due on due Goal Hemoglobin A1C. Due on due Goal IFOB. Due on due Goal FIT-DNA. Due on due Goal Pap/HPV testing. Due on due Goal FIT. Due on due Goal FOBT. Due on due Goal Cytology report of Cervical and vaginal smear or scraping Cyto stain. Due on due Goal Hepatitis C screening. Due o n due Goal Pap liquid based for cytolog y. Due on due Goal Glucose. Due on due Goal BMP. Due on due Goal Diabetes screening. Due on due Goal URINALYSIS NONAUTO W/O SCOPE . Due on due Goal ASCVD 10 year risk. Due on due Goal Unhealthy drug use screening . Due on due Goal Depression screening. Due on due Goal CT-Colonography. Due on due Goal EKG. Due on due Goal Colonoscopy. Due on 023 due Goal Digital Mammogram Screening. Due on due Goal ECG. Due on due Goal Foot exam. Due on due Goal Dental exam. Due on 023 due Goal Monofilament. Due on 2022 due Goal LINUX NETWORK ADMINISTRATOR/Breast exam. Due on due Goal Zoster vaccine (2nd) due Goal Influenza vaccine. Due on due Goal Pneumococcal vaccine. Due on due Goal Microalb/Creat Ratio, Randm Ur. Due on due Goal GFR. Due on due Goal Glucose. Due on due Goal IFOB. Due on due Goal Pap liquid based for cytolog y. Due on due Goal FOBT. Due on due Goal Hepatitis C screening. Due o n due Goal FIT-DNA. Due on due Goal Cytology report of Cervical and vaginal smear or scraping Cyto stain. Due on due Goal Pap/HPV testing. Due on due Goal FIT. Due on due Goal BMP. Due on due Goal Diabetes screening. Due on due Goal URINALYSIS NONAUTO W/O SCOPE . Due on due Goal ASCVD 10 year risk. Due on due Goal Unhealthy drug use screening . Due on due Goal Depression screening. Due on due Goal Dilated eye exam. Due on Dec due Goal LINUX NETWORK ADMINISTRATOR/Breast exam. Due on due Goal Zoster vaccine (2nd) due Goal Zoster vaccine (1st) due Goal Td vaccine. Due on due Goal Pneumococcal vaccine. Due on due Goal Influenza vaccine. Due on due Goal pouncer machine. Due on due Goal Microalb/Creat Ratio, Randm Ur. Due on due Goal GFR. Due on due Goal Urine microalbumin. Due on due Goal Hemoglobin A1C. Due on due Goal EKG. Due on due Goal Digital Mammogram Screening. Due on due Goal Colonoscopy. Due on [address]-Colonography. Due on due Goal Mammogram. Due on 4 due Goal ECG. Due on due Goal Foot exam. Due on 3 due Goal Monofilament. Due on 2022 due Goal Dental exam. Due on due Goal pouncer machine. Due on due Goal GFR. Due on due Goal Urine microalbumin. Due on due Goal Hemoglobin A1C. Due on due Goal Microalb/Creat Ratio, Randm Ur. Due on due Goal Pap/HPV testing. Due on due Goal FOBT. Due on due Goal FIT. Due on due Goal IFOB. Due on due Goal Hepatitis C screening. Due o n due Goal Cytology report of Cervical and vaginal smear or scraping Cyto stain. Due on due Goal FIT-DNA. Due on due Goal Glucose. Due on due Goal Pap liquid based for cytolog y. Due on due Goal BMP. Due on due Goal Diabetes screening. Due on due Goal URINALYSIS NONAUTO W/O SCOPE . Due on due Goal ASCVD 10 year risk. Due on due Goal Unhealthy drug use screening . Due on due Goal Depression screening. Due on due Goal CT-Colonography. Due on due Goal EKG. Due on due Goal Colonoscopy. Due on due Goal Digital Mammogram Screening. Due on due Goal ECG. Due on due Goal Foot exam. Due on due Goal Dilated eye exam. Due on Dec due Goal Dental exam. Due on due Goal Monofilament. Due on 2021 due Goal LINUX NETWORK ADMINISTRATOR/Breast exam. Due on due Goal Zoster vaccine (1st) due Goal Td vaccine. Due on due Goal Zoster vaccine (2nd) due Goal Influenza vaccine. Due on due Goal Pneumococcal vaccine. Due on due Goal Hemoglobin A1C. Due on due Goal IFOB. Due on due Goal Pap/HPV testing. Due on due Goal Pap liquid based for cytolog y. Due on due Goal FIT-DNA. Due on due Goal FOBT. Due on due Goal Diabetes screening. Due on due Goal BMP. Due on due Goal Lipid panel. Due on due Goal URINALYSIS NONAUTO W/O SCOPE . Due on due Goal ASCVD 10 year risk. Due on due Goal Depression screening. Due on due Goal Microalb/Creat Ratio, Randm Ur. Due on due Goal Urine microalbumin. Due on due Goal GFR. Due on due Goal FIT. Due on due Goal Cytology report of Cervical and vaginal smear or scraping Cyto stain. Due on due Goal Digital Mammogram Screening. Due on due Goal EKG. Due on due Goal Colonoscopy. Due on due Goal CT-Colonography. Due on due Goal ECG. Due on due Goal Monofilament. Due on 2021 due Goal Foot exam. Due on due Goal Dental exam. Due on due Goal Dilated eye exam. Due on Mar due Goal LINUX NETWORK ADMINISTRATOR/Breast exam. Due on due Goal Td vaccine. Due on due Goal Zoster vaccine (1st) due Goal Zoster vaccine (2nd) due Goal Pneumococcal vaccine. Due on due Goal Influenza vaccine. Due on due Goal Glucose. Due on due Goal pouncer machine. Due on due Goal Zoster vaccine (2nd) due Goal Pneumococcal vaccine. Due on due Goal Influenza vaccine. Due on due Goal pouncer machine. Due on due Goal Microalb/Creat Ratio, Randm Ur. Due on due Goal Urine microalbumin. Due on due Goal GFR. Due on due Goal Hemoglobin A1C. Due on due Goal Cytology report of Cervical and vaginal smear or scraping Cyto stain. Due on due Goal Pap liquid based for cytolog y. Due on due Goal Pap/HPV testing. Due on due Goal FIT. Due on due Goal IFOB. Due on due Goal FIT-DNA. Due on due Goal Glucose. Due on due Goal FOBT. Due on due Goal BMP. Due on due Goal Lipid panel. Due on due Goal Diabetes screening. Due on due Goal URINALYSIS NONAUTO W/O SCOPE . Due on due Goal ASCVD 10 year risk. Due on due Goal Depression screening. Due on due Goal CT-Colonography. Due on due Goal Digital Mammogram Screening. Due on due Goal Colonoscopy. Due on due Goal ECG. Due on due Goal EKG. Due on due Goal Monofilament. Due on 2021 due Goal Dilated eye exam. Due on Mar due Goal Dental exam. Due on due Goal Foot exam. Due on due Goal LINUX NETWORK ADMINISTRATOR/Breast exam. Due on due Goal Td vaccine. Due on due Goal Zoster vaccine (1st) due Goal BMP. Due on due Goal Microalb/Creat Ratio, Randm Ur. Due on due Goal GFR. Due on due Goal Hemoglobin A1C. Due on due Goal Urine microalbumin. Due on A due Goal Cytology report of Cervical and vaginal smear or scraping Cyto stain. Due on due Goal Glucose. Due on due Goal HPV. Due on due Goal Pap/HPV testing. Due on due Goal IFOB. Due on due Goal FIT-DNA. Due on due Goal FOBT. Due on due Goal Pap liquid based for cytolog y. Due on due Goal URINALYSIS NONAUTO W/O SCOPE . Due on due Goal Depression screening. Due on due Goal ASCVD 10 year risk. Due on A due Goal Colonoscopy. Due on due Goal ECG. Due on due Goal EKG. Due on due Goal CT-Colonography. Due on due Goal Digital Mammogram Screening. Due on due Goal Monofilament. Due on 2020 due Goal Dental exam. Due on due Goal Foot exam. Due on due Goal Dilated eye exam. Due on Mar due Goal LINUX NETWORK ADMINISTRATOR/Breast exam. Due on due Goal Zoster vaccine (1st) due Goal Zoster vaccine (2nd). Due on due Goal Influenza vaccine. Due on due Goal Pneumococcal vaccine. Due on due Goal Td vaccine. Due on due Goal pouncer machine. Due on due Goal FIT. Due on due Goal Diabetes screening. Due on A due Goal Lipid panel. Due on [address]-Colonography. Due on due Goal LINUX NETWORK ADMINISTRATOR/Breast exam. Due on due Goal Td vaccine. Due on due Goal Zoster vaccine (2nd). Due on due Goal Zoster vaccine (1st) due Goal Pneumococcal vaccine. Due on due Goal Influenza vaccine. Due on due Goal pouncer machine. Due on due Goal Hemoglobin A1C. Due on due Goal GFR. Due on due Goal Microalb/Creat Ratio, Randm Ur. Due on due Goal Urine microalbumin. Due on due Goal FOBT. Due on due Goal FIT-DNA. Due on due Goal Cytology report of Cervical and vaginal smear or scraping Cyto stain. Due on due Goal IFOB. Due on due Goal FIT. Due on due Goal HPV. Due on due Goal Glucose. Due on due Goal Pap liquid based for cytolog y. Due on due Goal Pap/HPV testing. Due on due Goal Diabetes screening. Due on due Goal BMP. Due on due Goal Lipid panel. Due on due Goal URINALYSIS NONAUTO W/O SCOPE . Due on due Goal ASCVD 10 year risk. Due on due Goal Depression screening. Due on due Goal Digital Mammogram Screening. Due on due Goal ECG. Due on due Goal Dental exam. Due on due Goal Monofilament. Due on 2020 due Goal Foot exam. Due on due Goal Dilated eye exam. Due on Mar due Goal EKG. Due on due Goal Colonoscopy. Due on due Goal EKG. Due on due Goal Influenza vaccine. Due on due Goal FOBT. Due on due Goal Cytology report of Cervical and vaginal smear or scraping Cyto stain. Due on due Goal IFOB. Due on due Goal FIT. Due on due Goal Pap/HPV testing. Due on due Goal HPV. Due on due Goal FIT-DNA. Due on due Goal Glucose. Due on due Goal URINALYSIS NONAUTO W/O SCOPE . Due on due Goal ASCVD 10 year risk. Due on due Goal Depression screening. Due on due Goal Colonoscopy. Due on due Goal Digital Mammogram Screening. Due on due Goal CT-Colonography. Due on due Goal Zoster vaccine (1st) due Goal Zoster vaccine (2nd). Due on due Goal Td vaccine. Due on due Goal Pneumococcal vaccine. Due on due Goal pouncer machine. Due on Ar due Goal Microalb/Creat Ratio, Randm Ur. Due on due Goal DEXA Scan. Due on due Goal ECG. Due on due Goal Foot exam. Due on due Goal Monofilament. Due on 2020 due Goal Dental exam. Due on due Goal Urine microalbumin. Due on due Goal BMP. Due on due Goal Hemoglobin A1C. Due on due Goal GFR. Due on due Goal Diabetes screening. Due on due Goal Pap liquid based for cytolog y. Due on due Goal Dilated eye exam. Due on Mar due Goal LINUX NETWORK ADMINISTRATOR/Breast exam. Due on due Goal pouncer machine. Due on due Goal Hemoglobin A1C. Due on due Goal Microalb/Creat Ratio, Randm Ur. Due on due Goal GFR. Due on due Goal Urine microalbumin. Due on due Goal HPV. Due on due Goal Pap/HPV testing. Due on due Goal IFOB. Due on due Goal FIT-DNA. Due on due Goal Glucose. Due on due Goal FOBT. Due on due Goal FIT. Due on due Goal Pap liquid based for cytolog y. Due on due Goal BMP. Due on due Goal Cytology report of Cervical and vaginal smear or scraping Cyto stain. Due on due Goal Diabetes screening. Due on due Goal URINALYSIS NONAUTO W/O SCOPE . Due on due Goal ASCVD 10 year risk. Due on due Goal Depression screening. Due on due Goal Dilated eye exam. Due on Mar due Goal LINUX NETWORK ADMINISTRATOR/Breast exam. Due on due Goal Zoster vaccine (1st) due Goal Zoster vaccine (2nd). Due on due Goal Td vaccine. Due on due Goal Influenza vaccine. Due on due Goal Pneumococcal vaccine. Due on due Goal Colonoscopy. Due on due Goal CT-Colonography. Due on due Goal EKG. Due on due Goal Digital Mammogram Screening. Due on due Goal DEXA Scan. Due on due Goal ECG. Due on due Goal Monofilament. Due on 2020 due Goal Foot exam. Due on due Goal Dental exam. Due on due Goal LINUX NETWORK ADMINISTRATOR/Breast exam. Due on due Goal HPV. Due on due Goal Pap/HPV testing. Due on due Goal FIT. Due on due Goal Pap liquid based for cytolog y. Due on due Goal Glucose. Due on due Goal Cytology report of Cervical and vaginal smear or scraping Cyto stain. Due on due Goal FOBT. Due on due Goal Diabetes screening. Due on due Goal BMP. Due on due Goal URINALYSIS NONAUTO W/O SCOPE . Due on due Goal ASCVD 10 year risk. Due on due Goal Depression screening. Due on due Goal Td vaccine. Due on due Goal Zoster vaccine (2nd). Due on due Goal Zoster vaccine (1st) due Goal Hemoglobin A1C. Due on due Goal IFOB. Due on due Goal FIT-DNA. Due on due Goal CT-Colonography. Due on due Goal EKG. Due on due Goal Monofilament. Due on 2019 due Goal Dental exam. Due on due Goal Influenza vaccine. Due on due Goal Pneumococcal vaccine. Due on due Goal pouncer machine. Due on due Goal Urine microalbumin. Due on due Goal GFR. Due on due Goal Microalb/Creat Ratio, Randm Ur. Due on due Goal Colonoscopy. Due on due Goal Digital Mammogram Screening. Due on due Goal DEXA Scan. Due on 0 due Goal ECG. Due on due Goal Dilated eye exam. Due on Mar due Goal Foot exam. Due on 0 due Goal DEXA Scan. Due on 0 due Goal Pap liquid based for cytolog y. Due on due Goal HPV. Due on due Goal FOBT. Due on due Goal FIT. Due on due Goal IFOB. Due on due Goal Pap/HPV testing. Due on due Goal Cytology report of Cervical and vaginal smear or scraping Cyto stain. Due on due Goal Diabetes screening. Due on due Goal BMP. Due on due Goal URINALYSIS NONAUTO W/O SCOPE . Due on due Goal ASCVD 10 year risk. Due on due Goal Depression screening. Due on due Goal Digital Mammogram Screening. Due on due Goal CT-Colonography. Due on due Goal EKG. Due on due Goal Colonoscopy. Due on due Goal ECG. Due on due Goal Monofilament. Due on 2019 due Goal Dental exam. Due on due Goal Foot exam. Due on 0 due Goal Dilated eye exam. Due on Apr due Goal LINUX NETWORK ADMINISTRATOR/Breast exam. Due on due Goal Zoster vaccine (2nd). Due on due Goal Td vaccine. Due on 20 due Goal Zoster vaccine (1st) due Goal Pneumococcal vaccine. Due on due Goal Influenza vaccine. Due on due Goal pouncer machine. Due on due Goal Hemoglobin A1C. Due on due Goal Urine microalbumin. Due on due Goal GFR. Due on due Goal Microalb/Creat Ratio, Randm Ur. Due on due Goal Glucose. Due on due Goal FIT-DNA. Due on due Goal LINUX NETWORK ADMINISTRATOR/Breast exam. Due on due Goal Influenza vaccine. Due on due Goal Td vaccine. Due on due Goal Zoster vaccine (2nd). Due on due Goal Zoster vaccine (1st) due Goal Pneumococcal vaccine. Due on due Goal pouncer machine. Due on due Goal Microalb/Creat Ratio, Randm Ur. Due on due Goal Diabetes screening. Due on A due Goal GFR. Due on due Goal Hemoglobin A1C. Due on due Goal Urine microalbumin. Due on A due Goal IFOB. Due on due Goal Cytology report of Cervical and vaginal smear or scraping Cyto stain. Due on due Goal FOBT. Due on due Goal Pap liquid based for cytolog y. Due on due Goal Glucose. Due on due Goal Pap/HPV testing. Due on due Goal FIT. Due on due Goal FIT-DNA. Due on due Goal HPV. Due on due Goal BMP. Due on due Goal URINALYSIS NONAUTO W/O SCOPE . Due on due Goal ASCVD 10 year risk. Due on A ug due Goal Depression screening. Due on due Goal Colonoscopy. Due on due Goal DEXA Scan. Due on 0 due Goal EKG. Due on due Goal Digital Mammogram Screening. Due on due Goal CT-Colonography. Due on due Goal ECG. Due on due Goal Monofilament. Due on 2019 due Goal Dilated eye exam. Due on Apr due Goal Foot exam. Due on 0 due Goal Dental exam. Due on due Goal Monofilament. Due on 2019 due Goal Dilated eye exam. Due on Apr due Goal Glucose. Due on due Goal Diabetes screening. Due on due Goal BMP. Due on due Goal URINALYSIS NONAUTO W/O SCOPE . Due on due Goal Depression screening. Due on due Goal Foot exam. Due on 0 due Goal Td vaccine. Due on 20 due Goal pouncer machine. Due on due Goal GFR. Due on due Goal Microalb/Creat Ratio, Randm Ur. Due on due Goal Urine microalbumin. Due on due Goal Pap/HPV testing. Due on due Goal FOBT. Due on due Goal Cytology report of Cervical and vaginal smear or scraping Cyto stain. Due on due Goal Pap liquid based for cytolog y. Due on due Goal Digital Mammogram Screening. Due on due Goal DEXA Scan. Due on 0 due Goal EKG. Due on due Goal Colonoscopy. Due on due Goal Dental exam. Due on due Goal IFOB. Due on due Goal LINUX NETWORK ADMINISTRATOR/Breast exam. Due on due Goal Zoster vaccine (). Due on due Goal Pneumococcal vaccine. Due on due Goal Influenza vaccine. Due on due Goal Hemoglobin A1C. Due on due Goal ECG. Due on due Goal Pap/HPV testing. Due on due Goal FOBT. Due on due Goal BMP. Due on due Goal Diabetes screening. Due on due Goal URINALYSIS NONAUTO W/O SCOPE . Due on due Goal Depression screening. Due on due Goal Pneumococcal vaccine. Due on due Goal Influenza vaccine. Due on due Goal pouncer machine. Due on due Goal Microalb/Creat Ratio, Randm Ur. Due on due Goal GFR. Due on due Goal Urine microalbumin. Due on due Goal Cytology report of Cervical and vaginal smear or scraping Cyto stain. Due on due Goal Glucose. Due on due Goal Digital Mammogram Screening. Due on due Goal Colonoscopy. Due on due Goal EKG. Due on due Goal ECG. Due on due Goal Dental exam. Due on due Goal Monofilament. Due on 2018 due Goal Dilated eye exam. Due on Apr due Goal Foot exam. Due on 9 due Goal LINUX NETWORK ADMINISTRATOR/Breast exam. Due on due Goal Td vaccine. Due on 19 due Goal Zoster vaccine (). Due on due Goal IFOB. Due on due Goal Pap liquid based for cytolog y. Due on due Goal EKG. Due on due Goal Cytology report of Cervical and vaginal smear or scraping Cyto stain. Due on due Goal Diabetes screening. Due on due Goal BMP. Due on due Goal Colonoscopy. Due on due Goal URINALYSIS NONAUTO W/O SCOPE . Due on due Goal Depression screening. Due on due Goal DEXA Scan. Due on 6 due Goal ECG. Due on due Goal Eye exam. Due on due Goal LINUX NETWORK ADMINISTRATOR/Breast exam. Due on due Goal Influenza vaccine. Due on due Goal Pneumococcal vaccine. Due on due Goal Td vaccine. Due on 19 due Goal Pap liquid based for cytolog y. Due on due Goal Glucose. Due on due Goal IFOB. Due on due Goal Pap/HPV testing. Due on due Goal FOBT. Due on due Goal Lipid panel. Due on due Goal Dilated eye exam. Due on Apr due Goal Monofilament. Due on 2018 due Goal Foot exam. Due on 9 due Goal Dental exam. Due on due Goal Zoster. Due on d ue Goal pouncer machine. Due on due Goal Microalb/Creat Ratio, Randm Ur. Due on due Goal Urine microalbumin. Due on due Goal GFR. Due on due Goal Hemoglobin A1C. Due on due Goal Pap liquid based for cytolog y. Due on due Goal Glucose. Due on due Goal Diabetes screening. Due on due Goal BMP. Due on due Goal Lipid panel. Due on due Goal URINALYSIS NONAUTO W/O SCOPE . Due on due Goal Depression screening. Due on due Goal Urine microalbumin. Due on due Goal GFR. Due on due Goal Microalb/Creat Ratio, Randm Ur. Due on due Goal FOBT. Due on due Goal Pap/HPV testing. Due on due Goal EKG. Due on due Goal Colonoscopy. Due on due Goal DEXA Scan. Due on 6 due Goal ECG. Due on due Goal Dilated eye exam. Due on Apr due Goal Monofilament. Due on 2018 due Goal Dental exam. Due on due Goal Foot exam. Due on 9 due Goal LINUX NETWORK ADMINISTRATOR/Breast exam. Due on due Goal Eye exam. Due on due Goal Zoster. Due on d ue Goal Td vaccine. Due on 19 due Goal Influenza vaccine. Due on due Goal Pneumococcal vaccine. Due on due Goal pouncer machine. Due on due Goal Cytology report of Cervical and vaginal smear or scraping Cyto stain. Due on due Goal IFOB. Due on due Goal Dental exam. Due on due Goal Cytology report of Cervical and vaginal smear or scraping Cyto stain. Due on due Goal Pap/HPV testing. Due on due Goal Glucose. Due on due Goal Pap liquid based for cytolog y. Due on due Goal BMP. Due on due Goal URINALYSIS NONAUTO W/O SCOPE . Due on due Goal Depression screening. Due on due Goal Eye exam. Due on due Goal Monofilament. Due on 2017 due Goal Foot exam. Due on 8 due Goal LINUX NETWORK ADMINISTRATOR/Breast exam. Due on due Goal Zoster. Due on d ue Goal Td vaccine. Due on 18 due Goal Pneumococcal vaccine. Due on due Goal Influenza vaccine. Due on due Goal pouncer machine. Due on due Goal Hemoglobin A1C. Due on due Goal GFR. Due on due Goal Microalb/Creat Ratio, Randm Ur. Due on due Goal Lipid panel. Due on 019 due Goal Diabetes screening. Due on due Goal Urine microalbumin. Due on due Goal EKG. Due on due Goal DEXA Scan. Due on 6 due Goal Colonoscopy. Due on 018 due Goal ECG. Due on due Goal Dilated eye exam. Due on Jul due Goal IFOB. Due on due Goal FOBT. Due on due Goal Monofilament. Due on 2017 due Goal Foot exam. Due on 8 due Goal Dilated eye exam. Due on Jul due Goal LINUX NETWORK ADMINISTRATOR/Breast exam. Due on due Goal Eye exam. Due on due Goal Zoster. Due on d ue Goal Td vaccine. Due on 18 due Goal Pneumococcal vaccine. Due on due Goal Influenza vaccine. Due on due Goal pouncer machine. Due on due Goal GFR. Due on due Goal Microalb/Creat Ratio, Randm Ur. Due on due Goal Hemoglobin A1C. Due on due Goal Pap liquid based for cytolog y. Due on due Goal FOBT. Due on due Goal Cytology report of Cervical and vaginal smear or scraping Cyto stain. Due on due Goal Pap/HPV testing. Due on due Goal Glucose. Due on due Goal IFOB. Due on due Goal BMP. Due on due Goal Diabetes screening. Due on due Goal URINALYSIS NONAUTO W/O SCOPE . Due on due Goal Depression screening. Due on due Goal Colonoscopy. Due on 018 due Goal EKG. Due on due Goal ECG. Due on due Goal Dental exam. Due on 018 due Goal DEXA Scan. Due on 6 due Goal Urine microalbumin. Due on due Goal Mammogram. Due on 8 due Goal Colonoscopy. Due on due Goal ECG. Due on due Goal Eye exam. Due on due Goal LINUX NETWORK ADMINISTRATOR/Breast exam. Due on due Goal Td vaccine. Due on 18 due Goal Pneumococcal vaccine. Due on due Goal Influenza vaccine. Due on due Goal pouncer machine. Due on due Goal Microalb/Creat Ratio, Randm Ur. Due on due Goal GFR. Due on due Goal Hemoglobin A1C. Due on due Goal Urine microalbumin. Due on A due Goal BMP. Due on due Goal FOBT. Due on due Goal IFOB. Due on due Goal Glucose. Due on due Goal Pap liquid based for cytolog y. Due on due Goal Cytology report of Cervical and vaginal smear or scraping Cyto stain. Due on due Goal Pap/HPV testing. Due on due Goal Diabetes screening. Due on due Goal URINALYSIS NONAUTO W/O SCOPE . Due on due Goal Depression screening. Due on due Goal EKG. Due on due Goal Dental exam. Due on due Goal Monofilament. Due on 2017 due Goal Dilated eye exam. Due on Jul due Goal Foot exam. Due on due Goal Zoster. Due on d ue Goal DEXA Scan. Due on 6 due Goal Dental exam. Due on 018 due Goal Dilated eye exam. Due on Jul due Goal Td vaccine. Due on 18 due Goal Pneumococcal vaccine. Due on due Goal Influenza vaccine. Due on due Goal Zoster. Due on d ue Goal pouncer machine. Due on due Goal Pap/HPV testing. Due on due Goal FOBT. Due on due Goal IFOB. Due on due Goal Diabetes screening. Due on due Goal BMP. Due on due Goal GFR. Due on due Goal Hemoglobin A1C. Due on due Goal Microalb/Creat Ratio, Randm Ur. Due on due Goal Urine microalbumin. Due on due Goal Pap liquid based for cytolog y. Due on due Goal Cytology report of Cervical and vaginal smear or scraping Cyto stain. Due on due Goal Glucose. Due on due Goal URINALYSIS NONAUTO W/O SCOPE . Due on due Goal Depression screening. Due on due Goal DEXA Scan. Due on 6 due Goal Colonoscopy. Due on 018 due Goal ECG. Due on due Goal EKG. Due on due Goal Mammogram. Due on 8 due Goal LINUX NETWORK ADMINISTRATOR/Breast exam. Due on due Goal Eye exam. Due on due Goal Foot exam. Due on 8 due Goal Monofilament. Due on 2017 due Goal Tobacco cessation counseling completed Goal Urine microalbumin. Due on due Goal Pap/HPV testing. Due on due Goal FOBT. Due on due Goal Diabetes screening. Due on due Goal BMP. Due on due Goal Pap liquid based for cytolog y. Due on due Goal URINALYSIS NONAUTO W/O SCOPE . Due on due Goal Depression screening. Due on due Goal Cytology report of Cervical and vaginal smear or scraping Cyto stain. Due on due Goal EKG. Due on due Goal Colonoscopy. Due on 017 due Goal Mammogram. Due on 8 due Goal DEXA Scan. Due on 6 due Goal ECG. Due on due Goal Foot exam. Due on 7 due Goal Monofilament. Due on 2016 due Goal Dilated eye exam. Due on Jul due Goal Dental exam. Due on 017 due Goal LINUX NETWORK ADMINISTRATOR/Breast exam. Due on due Goal Glucose. Due on due Goal Eye exam. Due on due Goal Zoster. Due on d ue Goal Td vaccine. Due on 17 due Goal Influenza vaccine. Due on due Goal Pneumococcal vaccine. Due on due Goal pouncer machine. Due on due Goal GFR. Due on due Goal Hemoglobin A1C. Due on due Goal Microalb/Creat Ratio, Randm Ur. Due on due Goal IFOB. Due on due Goal DEXA Scan. Due on 6 due Goal Colonoscopy. Due on due Goal Mammogram. Due on 8 due Goal Dilated eye exam. Due on Jul due Goal Dental exam. Due on due Goal Monofilament. Due on 2016 due Goal LINUX NETWORK ADMINISTRATOR/Breast exam. Due on due Goal Eye exam. Due on due Goal Influenza vaccine. Due on due Goal Zoster. Due on d ue Goal Td vaccine. Due on due Goal Pneumococcal vaccine. Due on due Goal pouncer machine. Due on due Goal Diabetes screening. Due on due Goal Hemoglobin A1C. Due on due Goal GFR. Due on due Goal Microalb/Creat Ratio, Randm Ur. Due on due Goal Urine microalbumin. Due on due Goal Pap liquid based for cytolog y. Due on due Goal Glucose. Due on due Goal FOBT. Due on due Goal Pap/HPV testing. Due on due Goal IFOB. Due on due Goal Cytology report of Cervical and vaginal smear or scraping Cyto stain. Due on due Goal URINALYSIS NONAUTO W/O SCOPE . Due on due Goal Depression screening. Due on due Goal EKG. Due on due Goal ECG. Due on due Goal Foot exam. Due on 7 due Goal Colonoscopy. Due on 017 due Goal Monofilament. Due on 2016 due Goal LINUX NETWORK ADMINISTRATOR/Breast exam. Due on due Goal Zoster. Due on d ue Goal Td vaccine. Due on 17 due Goal pouncer machine. Due on due Goal Microalb/Creat Ratio, Randm Ur. Due on due Goal GFR. Due on due Goal Urine microalbumin. Due on due Goal Cytology report of Cervical and vaginal smear or scraping Cyto stain. Due on due Goal IFOB. Due on due Goal Pap liquid based for cytolog y. Due on due Goal Pap/HPV testing. Due on due Goal FOBT. Due on due Goal URINALYSIS NONAUTO W/O SCOPE . Due on due Goal Depression screening. Due on due Goal ECG. Due on due Goal EKG. Due on due Goal Foot exam. Due on due Goal Dental exam. Due on 017 due Goal Dilated eye exam. Due on Jul due Goal Eye exam. Due on due Goal Tobacco cessation counseling completed Goal IFOB. Due on due Goal FOBT. Due on due Goal Cytology report of Cervical and vaginal smear or scraping Cyto stain. Due on due Goal URINALYSIS NONAUTO W/O SCOPE . Due on due Goal Depression screening. Due on due Goal EKG. Due on due Goal Colonoscopy. Due on due Goal ECG. Due on due Goal Dental exam. Due on due Goal Foot exam. Due on due Goal Dilated eye exam. Due on November due Goal Monofilament. Due on 2016 due Goal LINUX NETWORK ADMINISTRATOR/Breast exam. Due on due Goal Eye exam. Due on due Goal Zoster. Due on d ue Goal Td vaccine. Due on 17 due Goal pouncer machine. Due on due Goal Microalb/Creat Ratio, Randm Ur. Due on due Goal Urine microalbumin. Due on due Goal GFR. Due on due Goal Pap/HPV testing. Due on due Goal Pap liquid based for cytolog y. Due on due Goal LINUX NETWORK ADMINISTRATOR/Breast exam. Due on due Goal Dilated eye exam. Due on May due Goal Foot exam. Due on 6 due Goal Monofilament. Due on 2015 due Goal Dental exam. Due on 016 due Goal Eye exam. Due on due Goal Zoster vaccine due Goal Td vaccine. Due on 16 due Goal Tdap. Due on due Goal Zoster. Due on d ue Goal pouncer machine. Due on due Goal IFOB. Due on due Goal Glucose. Due on due Goal FOBT. Due on due Goal Pap liquid based for cytolog y. Due on due Goal Pap/HPV testing. Due on due Goal BMP. Due on due Goal GFR. Due on due Goal Urine microalbumin. Due on due Goal Microalb/Creat Ratio, Randm Ur. Due on due Goal URINALYSIS NONAUTO W/O SCOPE . Due on due Goal Urinalysis due Goal Depression screening. Due on due Goal Colonoscopy. Due on 016 due Goal DEXA Scan. Due on 6 due Goal EKG. Due on due Goal ECG. Due on due Referral Ordered: [facility] -Nephrology (related to Hypocalcemia) [id number] Ordered: Jerson Leo MD -Nephrology (related to Hypocalcemia) [id number] Referred To: Jerson Leo MD [address] [place], [address] [phone] Ordered: Referrals: Nephrology. Jerson Leo MD. Evaluate and treat [id number]-[id number] Referred To: [facility] Ordered: Referrals: Nephrology. [facility]. Evaluate and treat [id number] Ordered: Dr Ibrahim -Gastroenterology (related to Colon polyps) [id number] Referred To: Dr Ibrahim Ordered: Referrals: Gastroenterology. Dr Ibrahim. Evaluate and treat acxqzhvHgk-[id number], SjllnftdSZLFNFOwe-32-3863Zzozuz Order: Lab OrderCBC ([id number]), Ordered on: Bey-86-2136UihfifbGiu-Future Order: Lab OrderCMP ([id number]), Ordered on: Biq-36-3668UtpmzstTie-20-2025Future Order: Lab OrderHemoglobin A1c ([id number]), Ordered on: Xlu-97-3277BaphupxSge-20-2025Future Order: Lab OrderLipid Profile ([id number]), Ordered on: Gxd-71-3199Yzrspcz Gno-21-1389Npoizq Order: Lab OrderMicroalbumin Urine Lvl ([id number]), Ordered on: Yer-15-0405OtjwsrqRzw-Future Order: Lab OrderTSH ([id number]), Ordered on: Yti-61-2403RxrqvzmKbv-Future Order: Radiology OrderMA SCREENINGMAMMOGRAPHYDIGITAL ([id number]), Ordered on: Dtg-31-7831Jqnulhv Lru-93-0593Zcnuvw Order: Lab OrderCMP ([id number]), Ordered on: Rci-14-7850Mbbtmlc Kej-28-8506Jmtcuk Order: Lab OrderMicroalbumin Urine Lvl ([id number]), Ordered on: Order: Lab OrderLipid Profile ([id number]), Ordered on: Order: Lab OrderTSH ([id number]), Ordered on: Order: Lab OrderMagnesium Level ([id number]), Ordered on: Order: Lab OrderCBC ([id number]), Ordered on: Order: Lab Order Magnesium Level ([id number]), Ordered on: Future Order: Radiology OrderMA SCREENINGMAMMOGRAPHYDIGITAL ([id number]), Ordered on: ture Order: Lab OrderMicroalbumin Urine Lvl ([id number]), Ordered on: ture Order: Lab OrderCMP ([id number]), Ordered on: Fu Order: Lab OrderLipid Profile ([id number]), Ordered on: ture Order: Lab OrderTSH ([id number]), Ordered on: All-45-9225BraetuhAat-13-2022Future Order: Radiology OrderMA SCREENINGMAMMOGRAPHYDIGITAL ([id number]), Ordered on: Future Order: Lab OrderCalcium Level Total ([id number]), Ordered on: Future Order: Lab Order Magnesium Level ([id number]), Ordered on: Fu Order: Lab OrderCMP ([id number]), Ordered on: Future Order: Lab OrderLipid Profile ([id number]), Ordered on: Mnf-73-7913Rkdlmrn Fcz-34-8391Vrhwql Order: Lab OrderMicroalbumin Urine Lvl ([id number]), Ordered on: Future Order: Lab OrderTSH ([id number]), Ordered on: Future Order: Lab OrderHemoglobin A1c ([id number]), Ordered on: Future Order: Radiology OrderBD Bone Density DEXA ([id number]), Ordered on: Ula-97-3361PsaubwnFjg-10-2020Future Order: Lab OrderLipid Profile ([id number]), Ordered on: Ztk-43-9958JmmbiigMlf-10-2020 Future Order: Lab OrderCMP ([id number]), Ordered on: Acp-71-7054MmljeovRrc-10-2020 Future Order: Lab OrderTSH ([id number]), Ordered on: Urk-89-2541AxxfelaEek-10-2020 Future Order: Lab OrderMicroalbumin Urine Lvl ([id number]), Ordered on: Future Order: Radiology OrderUS Thyroid ([id number]), Ordered on: Cff-64-1530UpwbzqdYhd-10-2020Future Order: Radiology OrderMA SCREENINGMAMMOGRAPHYDIGITAL ([id number]), Ordered on: Qxw-66-6803Gntmfsh Sfu-55-0335Gphpqc Order: Radiology OrderMA SCREENINGMAMMOGRAPHYDIGITAL ([id number]), Ordered on: Xgv-68-7874JeukzrgQqq-13-2019Future Order: Radiology OrderUS Thyroid ([id number]), Ordered on: Rxd-31-9314BlkarzxVfv-13-2019Future Order: Lab OrderHemoglobin A1c ([id number]), Ordered on: Lcj-73-0557Utonoqv Msn-19-1684Xgulbu Order: Lab OrderLipid Profile ([id number]), Ordered on: Lfq-46-1912ObdguhpVgn-13-2019Future Order: Lab OrderMicroalbumin Urine Lvl ([id number]), Ordered on: Ygb-45-9686TslqxdaEtd-13-2019Future Order: Lab OrderTSH ([id number]), Ordered on: Future Order: Lab OrderCMP ([id number]), Ordered on: Rdc-44-7858CjvanznSva-08-2017Future Order: Radiology OrderMA SCREENINGMAMMOGRAPHYDIGITAL ([id number]), Ordered on: Gsj-21-4581Ufezest Eox-07-8749Xxviiz Order: Lab OrderPotassium Level ([id number]), Ordered on: Ywj-70-1693OiovnzlGoh-20-2016Future Order: Radiology OrderUS Thyroid ([id number]), Ordered on: Future Order: Radiology OrderMA Digital Mammogram Screening ([id number]), Ordered on: Lnp-07-5988NhmcvjtPbd-19-2016Future Order: Lab OrderLipid Profile ([id number]), Ordered on: Zxn-14-5080Opjpwzv Udb-17-5467Lsrnim Order: Lab OrderHemoglobin A1c ([id number]), Ordered on: Vng-87-2200ZqkjxvqWso-19-2016Future Order: Lab OrderCMP ([id number]), Ordered on: Uwq-72-2830QuaokprHra-09-2015Future Order: Radiology OrderXR Spine Lumbosacral 2 or 3 Views ([id number]), Ordered on: Future Order: Lab OrderHemoglobin A1c ([id number]), Ordered on: Pad-74-4258VnuasopNko-20-2015 Future Order: Lab OrderLipid Profile ([id number]), Ordered on: Hug-96-2152Qtgfpdz Ghw-65-1932Gfxbty Order: Lab OrderCMP ([id number]), Ordered on: Cgt-88-3014Woagdhk Ons-24-4067Vvxxzo Order: Lab OrderTSH ([id number]), Ordered on: Xhk-74-7557Jrvxigb Arm-91-2622Abzhrf Order: Lab OrderMicroalbumin Urine Lvl ([id number]), Ordered on: Future Order: Lab OrderLipid Profile ([id number]), Ordered on: Kux-00-6738PzokyutKzr-20-2014Future Order: Radiology OrderMA Digital Mammogram Screening ([id number]), Ordered on: Future Order: Lab OrderCBC ([id number]), Ordered on: Future Order: Lab OrderCMP ([id number]), Ordered on: Future Order: Lab OrderLipid Profile ([id number]), Ordered on: Mbt-19-7318Egqndjq Ffy-71-7803Plnsyg Order: Lab OrderTSH ([id number]), Ordered on: Gyv-53-9755Lmvcqie Aah-63-4866Zosyek Order: Lab OrderMicroalbumin Urine Lvl ([id number]), Ordered on: Ahk-33-5912Kqjxkbx History Of Present Illness Encounter Date Complaint History Of Prese nt Illness follow up Reviewed labs . Last DEXA 03/27/21. Last mammogram 10/09/23.DM - Last A1C 6.6% on 12/13/24. Last eye exam 04/824, no retinopathy.Depression, CKD - Taking medication as prescribedHTN, Heart Failure, Hypercholesterolemia - Managed by cardiologystates it feels like [facility] chronic conditions Comments: Review ed labs from 12/10/24, Hgb 17. A1C 6.1 on 08/08/24. Pt states not as consistent with diet lately. Had to travel to [place] earlier this year d/t deaths in the family. States her stepson in Jul and sister in September. Cardiology increased simvastatin to 40mg. States stress test and echo scheduled week december at [facility]. Denies any symptoms; states cardio just wants updated cardiac testing. Reports pressure in R ear for the past few days. States still smoking cigarettes.States [facility] keeps contacting her about getting updated mamm. chronic conditions Comments: Review ed labs from 10/19/23. A1C 6.3 on 05/02/24. Eye exam 05/03/24, no retinopathy. Lost 6lbs since last appt. Pt states she received notice in the mail that lantus would no longer be covered, but was able to get it refilled at pharmacy recently, so is unsure. States cardiology advised stopping famotidine a month ago because magnesium levels were low. Reports having heartburn ever since. Worse at night. Was so bad she vomited bile a few times. States taking magnesium 500mg daily for about a month. Was coughing up phlegm this AM, but denies feeling sick. States UTD on flu and pneumonia shots. Had initial 3 COVID shots, but no boosters since then. chronic conditions Comments: DM- ey e exam 03/27/23 - mild RTN. Has appt tomorrow for recheck. A1c 7.8 on 09/2723. Started Ozempic at September appt. Reviewed labs from 10/19/23. Lost 10lbs since September. f/u Comments: Review ed labs from 10/19/23, GFR 55.A1C 7.5 on 06/22/23. Eye exam 03/27/23 showed mild retinopathy on R. Pt states consistent with meds. Taking 40 units lantus. No issues getting jardiance. Sees cardio. States no recent med changes. Will be getting labs end of November, ordered by cardio.States she plans on getting updated COVID booster. f/u Comments: Review ed labs from 04/01/22. A1C 8.1 on 02/20/23. Started jardiance at last appt. Eye exam 03/27/23; mild retinopathy on R. Pt states not eating as well as she should. Lost 15lbs since last appt. Reviewed mamm from 05/14/22.States cut back to half a pack of cigarettes a week.Has cardio appt on Thursday. States no recent change in medications.Reports R shoulder pain when putting pressure on it. Started a couple weeks ago. No known injuries. States pain not constant. Aggravated when laying on R side at night. DM f/u Comments: A1C 8. 1 on 11/04/22. Pt taking glipizide as prescribed. States she is taking 42 units lantus and 14 units novolog. States most recent eye exam was last year with Dr. Moore. Pt states she got her wheelchair as ordered.States her balance is still not good. Previously did PT; states they did not give her exercises to do at home. States she recently got shoes with better arch support. States she occ gets dizzy spells. Episodes do not last long and occur randomly. Does not check sugars during episodes because they don't last very long. Pt states she cut down from smoking a pack a day to a pack a week. chronic conditions Comments: Review ed labs from 10/31/22. States cardio inc magnesium to 500mg bid. Stopped water pill for 3 days and stopped prilosec. Was told to resume water pill, but did not get a clear answer about resuming prilosec or potassium. States without prilosec, she gets more reflux, bloating, nausea, and gas. Thinks she's been off of prilosec since 10/10. Inc metoprolol and added lisinopril. States OT recommended standard wheelchair d/t pt's unsteadiness when walking long distances and having a puppy at home that she might trip over. Gets SOB when using walker. States she completed PT.A1C 7.3 on 09/23/21. Pt states sugars slightly elevated, but not all the time. 90s-190 range in the AM. Taking glipizide and 40 units lantus as prescribed. Taking 14 units novolog with meals.Sometimes hears static sound in ears. TCM Comments: [facility] at [facility] 08/13-08[facility]18 with SOB. Diagnosed with CHF. Has moderate LV dysfunction. Started home health services. Had f/u with cardio this past week. Has 2-day stress test scheduled on 09/05 and 09/08. States breathing has improved. Denies SOB with physical exertion. States she is slowly weaning off cigarettes. Was not given glipizide while in the hospital and did sliding scale insulin. Resumed medications after discharge. Was also prescribed metoprolol and baby aspirin. States BP readings sometimes in the 150/110 range. Comments: See me dicare checklist. Eye exam 01/09/22. Reviewed labs from 04/01/22, A1C 7.5, calcium 6.9. Does not take a calcium supplement. Taking potassium daily. Does not take lasix consistently. Pt in ER about 4 weeks ago d/t R arm pain. Couldn't raise arm at all. No injuries. Magnesium was low in ER. Arm issues have since resolved. Currently on 6 day course of steroids for back and hips, prescribed by ortho (Dr. Tovar). MRI scheduled 04/11. Has not had injections. Seeing chiro for back pain. Pt states she's trying to wean off cigarettes.Noticed L pointer finger and R middle finger locks up sometimes. AWV Pt requires assi stance with the following ADLsEating - no Meal prep - noToileting - no Finances - noDressing - no Grooming - noShopping - no Transportation - noBathing - no Laundry - noPhone use - no Housekeeping - noMedications - noOver the past year pt has had:hearing loss - no fatigue- yesstress - yes loneliness- yespain - yes anger - nodental exam - yeseye exam - yes Pt uses:alcohol - notobacco - yesrecreational drugs - nosexually active - noeating fruits and vegetables daily - yestakes multivitamin - yeslost/gained weight over the past year - lost 8lbsgets regular exercise - nofelt down, depressed or hopeless - yesfelt little interest or pleasure in doing things - nofallen in the past year - no how many injuryhas smoke detectors - yeswears a seatbelt - yestakes opioid medications - nocog assessment - see scanned document medicare preventive Relevant his tory is negative for alcohol use. med refill, DM med refill, DM (comments) Commen ts: Last labs 12/06/20, A1C 7.9. Last eye exam 04/05/20. Pt had hip replacements this past year. Pt still smoking. Has difficulty breathing; gets SOB especially in cold weather. Had used inhaler in the past. Pt trying to stay active. Sometimes feels sharp pain in abdomen when bending over. No pain when sneezing/coughing. Not taking tramadol. Sometimes takes aleve for pain. Taking other medications as prescribed. Pt also reports feeling fullness in ears. R ear infection (comments) Comme nts: tried debrox with no relief. denies nasal drainage or sore throat. L ear feels plugged. hearing loss in the L ear. R ear infection finished cefdini r 300 mg BID from urgent care, no improvement. medicare preventive Relevant his tory is negative for alcohol use. medicare preventive (comments) C omments: see medicare preventative physical form. pt has a walk in shower with multiple grab bars. DM; 04/06/18 monofilament normal. 12/06/20 A1C 7.9. 12/05/20 micro/creat unable to calc. 04/05/20 eye exam no retinopathy. taking medication regularly. gained 8lbs since last appt. depression; taking medication regularly. hypercholesterolemia; 12/05/20 last lipid panel LDL 97, HDL 44, trig 275. taking statin regularly. HTN; 12/05/20 creat 0.67, BUN 14, GFR >60. taking medication regularly. 12/05/20 calcium 9.2. 07/15/17 PTHI 37.99multiple goiter; 12/05/20 TSH 1.25. 11/16/15 thyroid U/S multinodular.pt states going to have hip replacement at [facility] 12/19/20. pt states she is quitting smoking. does not drink. 11/19/15 mamm /07/16 declined colonoscopy chronic conditions chronic conditions (comments) DM ; 04/06/18 monofilament normal. 06/04/20 A1C 8.5. 12/20/19 micro/creat unable to calc. 04/05/20 eye exam no retinopathy. increased Novolog at last appt. pt states trying to eat better. depression; pt states daughters surgery went well and was able to get all the cancer. feels like stress has calmed a little. has some days where she does not want to do anything at all. trouble falling a sleep. Zoloft caused diarrhea.hypercholesterolemia; 12/20/19 last lipid panel LDL 62, HDL 46, trig 301HTN; 12/20/19 creat 0.74, BUN 15, GFR >60. taking medication regularly. turning her head to the L causes dizziness, does not notice when turns her head to the R or when laying in bed at night. x 2-3 weeks. 07/15/17 calcium 7.612 PTHI 37. TSH 1.69. 11/16/15 thyroid U/S multinodular 11/19/15 mamm [id number]/07/16 declined colonoscopy chronic conditions chronic conditions (comments) da ughter dx'd breast caner and notified pt yesterday. having a B mastectomy Thu.DM; 04/06/18 monofilament normal. 03/05/20 A1C 7.5. 12/20/19 micro/creat unable to calc. 04/28/18 eye exam no retinopathy. taking 40 units of lantus at night and 10 units of Novolog with meals. going to PT and chiro for back and hip pain until medicare can kick in. depression; sleeping better. with Wellbutrin. stopped sertraline due to diarrhea. hypercholesterolemia; 12/20/19 last lipid panel LDL 62, HDL 46, trig 301HTN; 12/20/19 creat 0.74, BUN 15, GFR > calcium 7.6. 07/15/17 PTHI 37. TSH 1.69. 11/16/15 thyroid U/S multinodular 11/19/15 mamm [id number]/07/16 declined colonoscopytobacco abuse; Wellbutrin has helped cut back from 3 packs of cigs to one. f/u zoloft f/u zoloft (comments) depression - started Zoloft last appt. sleep is better. some improvement in motivation. loose BM. poor appetite. has not started counseling yet. can get grief counseling through hospice. refill simvastatin chronic conditions chronic conditions (comments) DM ; 04/06/18 monofilament normal. 09/05/19 A1C 7.4. 12/20/19 micro/creat unable to calc. 04/28/18 eye exam no retinopathy. gained 12lbs since last appt. not eating a balanced diet. taking medications regularly. depression; mother passed in 10/2019. still getting over loss of . does not even want to grocery shop. nothing seems enjoyable. not sleeping well. hyperlipidemia; 12/20/19 last lipid panel LDL 62, HDL 46, trig 301. HTN; 12/20/19 creat 0.74, BUN 15, GFR >60. taking mediation regularly. 07/15/17 calcium 7.612 potassium 3. PTHI 37. TSH 1.69. 11/16/15 thyroid U/S multinodular 11/19/15 mamm [id number]/07/16 declined colonoscopy chronic conditions chronic conditions (comments) DM ; 04/06/18 monofilament normal. 08/06/18 A1C 6.2. 04/05/15 micro/creat 12. 04/28/18 eye exam no retinopathy. taking medication regularly. monitors BS at home. taking Aleve, tramadol, gabapentin, ice and heat to help with hip pain. hypercholesterolemia; 04/01/18 last lipid panel LDL 79, HDL 45, trig 261.HTN; 07/15/17 creat 0.61, BUN 11, GFR >60. taking medication regularly. recently lost her . not sleeping. trouble eating. crying all the time. mother is on a downward spiral also. forcing herself to do things. 07/15/17 calcium 7.6.07/15/17 potassium 3.5.07/15/17 PTHI 37.99.04/01/18 TSH 1.72. 11/16/15 thyroid U/S multinodular.11/19/15 mamm normal.06/02/16 declined colonoscopy. flu vaccine chronic conditions chronic conditions (comments) DM ; 04/06/18 monofilament normal. 08/06/18 A1C 6.2. 04/05/15 micro/creat 12. 04/28/18 eye exam no retinopathy. has had multiple cortisone injections affected BS for a few days then went back to normal. taking medication regularly. hypercholesterolemia; 04/01/18 last lipid panel LDL 79, HDL 45, trig 261.HTN; 07/15/17 creat 0.61, BUN 11, GFR >60. taking medication regularly. left and right hip OA; has had multiple injections that help with pain for a little while. sees Dr. Foster at [facility]. gabapentin works well at night. pins and needles sensation in the L forearm. usually occurs after taking care of mother while sitting and resting. taking percocet to sleep at night.cramping has improved since last appt. taking mg daily. 07/15/17 PTHI 37.99.04/01/18 TSH 1.72. 11/16/15 thyroid U/S multinodular.11/19/15 mamm normal.06/02/16 declined colonoscopy. chronic conditions chronic conditions (comments) DM ; 04/06/18 monofilament normal. 12/07/17 A1C 6.4. 04/05/15 micro/creat 12. 08/23/15 eye exam no retinopathy. two hypoglycemic episodes since last appt, BS were 55 and 62. hypercholesterolemia; 04/01/18 last lipid panel LDL 79, HDL 45, trig 261.HTN; 07/15/17 creat 0.61, BUN 11, GFR >60.hypocalcemia; 07/15/17 calcium 7.6.having a lot of leg cramps. neg soda pop. drinks 3-4 large glasses of water a day. taking 2 potassiums daily, does not need Lasix daily. taking calcium. cramping in the front of the legs when laying down, has to get up and walk around. hypokalemia; 07/15/17 potassium 3.5.07/15/17 PTHI 37.99.thyroid nodule; 04/01/18 TSH 1.72. 11/16/15 thyroid U/S multinodular.11/19/15 mamm normal.06/02/16 declined colonoscopy.2 injections in the L hip and 1 in the R hip. pain on the outside of the L hip that prevents pt from sleeping in bed. pain from the outside of the L hip radiates into the L knee. grabbing pain when laying down at night. painful to walk. chronic conditions Additional in formation: recent labs. chronic conditions (comments) DM ; 02/19/16 monofilament. 12/07/17 A1C 6.4. 04/05/15 micro/creat 12. 08/23/15 eye exam no retinopathy. lost 7lbs since last appt, and 13lbs since 07/2017. taking medication regularly. was recently on steroids for bronchitis prescribed by urgent care. hypercholesterolemia; 04/01/18 last lipid panel LDL 79, HDL 45, trig 261.GERD; stopped omeprazole. heartburn has come back. B hip OA; B groin pain. walk, standing and sometimes sitting. cannot get comfortable to sleep. PT was helping but insurance quit wanting to pay. first ortho, Dr. Meza, gave inj but did not help. tend unit helps a little. tramadol does not help. HTN; 07/15/17 creat 0.61, BUN 11, GFR >60. taking medication regularly. hypocalcemia; 07/15/17 calcium 7.6. 07/15/17 PTHI 37.99.hypokalemia; 07/15/17 potassium 3.5.thyroid nodule; 04/01/18 TSH 1.72. 11/16/15 thyroid U/S multinodular.11/19/15 mamm normal.06/02/16 declined colonoscopy. chronic conditions Additional in formation: refill simvastatin and quinapril to [facility]. am fasting BS 50's. chronic conditions (comments) DM ; 02/19/16 monofilament. 08/03/17 A1C 6.8. 04/05/15 micro/creat 12. 08/23/15 eye exam no retinopathy. pt states has cut out soda pop and sweet tea. waking up with BS in the 50s once a week. taking medication regularly. hypercholesteremia; 11/26/16 last lipid panel LDL 82, HDL 43, trig 159.HTN; 07/15/17 creat 0.61, BUN 11, GFR >60. taking medication regularly. hip pain is under control with PT and tramadol. hypocalcemia; 07/15/[address] Alcala in [place] and all the testing was normal. hypokalemia; 07/15/17 potassium 3.512/ PTHI 37.99. 11/26/16 TSH 1.40. 11/16/15 thyroid U/S multinodular.11/19/15 mamm normal.06/02/16 declined colonoscopy. chronic conditions Additional in formation: hip pain. chronic conditions (comments) xr ays show jt space narrowing, spurring of acetabulum, SI degenerative changes. B groin pain, worse WB, getting into a car, stepping up stairs. Aleve helps a little, tramadol helps. went through a course of PT. chronic conditions chronic conditions (comments) DM ; 02/19/16 monofilament . 04/03/17 A1C 6.8. 04/05/15 micro/creat 12. 08/23/15 eye exam no retinopathy. taking medication regularly. stopped invokana 3 weeks ago due to low BS. hypercholesterolemia; 11/26/16 last lipid panel LDL 82, HDL 43, trig 159.HTN; 07/15/17 creat 0.61, BUN 11, GFR >60. taking medication regularly. hypokalemia; 11/26/16 potassium 3.4. 07/15/17 potassium 3.5. has not gotten appt with [facility] yet. has not been taking lasix. hypocalcemia; 07/15/17 calcium 7.6. has not seen neighborhood service center director yet. 07/15/17 PTHI 37.99.11/26/16 TSH 1.40. 11/16/15 thyroid U/S multinodular.11/19/15 mamm normal. has not scheduled mamm yet. 06/02/16 declined colonoscopy.L ear feels full. x1 week. neg nasal congestion. heard to hear. tried OTC ear wax removal. neg poppingPT helping with hip and leg pain. chronic conditions (comments) DM ; 02/19/16 monofilament. 11/26/16 A1C 8.0. 04/05/15 micro/creat 12. 08/23/15 eye exam no retinopathy. never stopped glyburide. pt states she is taking medication regularly, reviewed medications with pt. lost 10lbs since 05/2016. pt states had eye exam 07/2016 or 08/2016. hypercholesterolemia; 11/26/16 last lipid panel LDL 82, HDL 43, trig 159HTN; 11/26/16 creat 0.45, BUN 12, GFR >60. taking medication regularly. coughing. nasal drainage and congestion. was placed on clindamycin. finished ATB but is still coughing. hoarsness. PND. L hip pain; painful to sleep on the L side. 12/2016 was driving back and forth from [place] a lot for her mother. went to urgent care was given ATB and steroid injection, state was dx with burcitis. injected helped. has been doing a lot of lift and transfering. R hip pain; has pain in the R side but does not hurt while sleeping. jolt of pain in the R groin/hip if walks wrong. hypokalemia; 05/21/16 potassium 4.2. taking mediation regularly. muscle cramps have improved. 11/26/16 TSH 1.40. 11/16/15 thyroid U/S multinodular.11/19/15 mamm normal.06/02/16 declined colonoscopy. chronic conditions Additional in formation: did not get labs, flu vaccine. on atb from dentist, steroid and tramadol for hip pain from urgent care. chronic conditions (comments) DM ; A1C 8.0%, taking meds regularly, watching what she eats cut out sodas,eating more vegtables & fruits, checks BS daily fasting. HTN;Hypercholesterolemia; Potassium low; takes potassium with her lasix, but hasn't had to take in a few. Has been getting muscle cramps in lower leg.R hip pain; while sitting gets some pain, can get up & move around it will go away.Skin lesion; beside R eye, gets it caught on things, bothers herTobacco abuse; smokes 2 packs daily chronic conditions chronic conditions chronic conditions (comments) DM ; 02/19/16 monofilament . 05/21/16 A1C 7.7. 04/05/15 micro/creat 12. 08/23/15 eye exam no retinopathy. taking medication regularly. occasionally has feet numbness but believes it is due to stenosis of the back. hypercholesterolemia; 11/07/15 last lipid panel LDL 81, HDL 45, trig 161.HTN; 05/21/16 creat 0.63, BUN 12, GFR 98. taking medication regularly. L hip bursitis; resolved with injection. hypoklemia; 05/21/16 potassium 4.2.muscles cramps; notices after doing more yard work or stnading for long periods of time.11/16/15 thyroid U/S multinodular. 05/21/16 TSH 1.320. 11/19/15 mamm normal.refused colonoscopy because there is no one in network. chronic conditions (comments) Ma mmogram: reviewed results. normalThyroid: pt got u/s. multi nodular Colon: she did not get colonoscopy d/t insurance not covering it. Hip: pts left hip has been bothering her still. she cannot lay on it. mainly if she lays on that side or if she is walking to much.Breast: pt got bite by something. nothing is draining. it has went down in size. diabetes (comments) Today's A1C= 7.3. pt has been checking sugars at home they have been ranging from 80-134. she has been in the 80-90 mostly. she does feel dizzy when she gets in the 50's. she has been trying to stay away from sugar beverages and sweets. she is taking Lantus 40units. hypertension diabetes She Has been man aged with oral medications. chronic conditions hypertension (comments) pt is ta claudy bp medications.Hypercholesterolemia: pt is taking meds. chronic conditions (comments) DM ; 03/15/14 monofilament. 11/07/15 A1C 7.2. 04/05/15 micro/creat 12. 08/23/15 eye exam no retinopathy. reviewed BS diary. hypercholesterolemia; 11/07/15 last lipid panel LDL 81, HDL 45, trig 161, GFR >60.HTN; 11/07/15 potassium 3.3. taking lasix 3 times a week, takes potassium with lasix. taking medication regularly. 12/2009 colonoscopy, in [place] per pt, a few polyps found.nodule of thyroid; last U/S 2011. no bx.lumbar stenosis; PT has help. performing at home exercises.epistaxis; using humidifier. chronic conditions recent labs chronic conditions (comments) DM ; 03/15/14 monofilament . 04/05/15 A1C 8.2. 04/05/15 micro/creat 12. 05/31/14 eye exam no retinopathy. BS in the AM is 60-90's. BS are 200's a couple after eating. pt states she is watching her soda and sweets intake. no hypoglycemic episodes. taking medication regularly. hyperlipidemia; 04/05/15 last lipid panel LDL 139, HDL 41, trig 290, GFR >60.HTN; taking medication regularly.back pain; ran out of PT frankie. PT was helping along with traction. trouble standing for long periods of time. neg had back injections. previously had injections no help. pain resolved for about 1 week after traction. chronic conditions refill meloxi cam and clotrimazole cream, prev rec'd flu vaccine chronic conditions recent labs, req flu vaccine chronic conditions (comments) DM ; monofilament 03/15/14. A1C 11/13/14 8.2. 03/09/14 micro/creat 22. 05/31/14 eye exam no retinopathy. reviewed BS diary. taking 50 units of lantus at bedtime. 04/05/15 A1C 8.2, micro/creat 12.occasionally will have sweaty spells , but states they are not as often as they were in the past. spells only last for about 5 mins. no chest tightness during sx. hyperlipidemia; 04/05/15 last lipid panel LDL 139, HDL 41, trig 290, GFR >60.HTN; taking medication regularly. last nuclear stress test was 2006, believes it was due to physical. back pain; slowly improving. starts PT tomorrow.last Dexa scan 2008.tobacco abuse; states she is trying to quit. smoking a pack a day.occasionally has a cramping feeling where her gallbladder was. notices it is mainly after when she eats something like popcorn. last for a few seconds then resolves. B hip/ BLE pain (comments) painf ul to sit and stand. pain in the hips that radiates into the knees. no excessive bending, lifting or twisting. went on vacation but was getting out every two hours to stretch. legs feel like they are going to give out on her. numbness/tingling in the calves. muscle cramps in the calves. states it is not the same kind of pain when she has a stenosis flare up. if she ices the R buttock, helps with pain. pain started before she went on vacaction. neg urinary incontinence. pain in the hips when sitting and pain in the legs when standing. Nsaids and Tylenol does not help. B hip/ BLE pain chronic conditions refill furose mide and clotrimazole to [facility] chronic conditions (comments) DM ; A1C 07/17/14 7.1. 05/31/14 eye exam no retinopathy. states she has been bad with her diet because she is trying to cut back on her smoking. has been using 40mg of lantus at night. checks BS at home. pressure in her ears. trouble hearing. no cracking or poping when chewing. pain especially on the R side. has had allergy problems in the past. has been having sinus headaches. leg cramps; improved since starting Mg.3rd finger on her R hand is triggering. midsection pain (comments) Low b ack pain, radiates to flank x 1 week. Back pain is worse bending. No change in BM's. No pain with BM. No fever. + urinary freq. No dysuria. Problems with back issues in the past. midsection pain chronic conditions chronic conditions (comments) di abetes; A1C 03/15/14 7.6. 05/31/14 eye doctor no retinopathy. reviewed BS dairy. HTN; simvastatin is causing leg cramps. only takes potassium when she takes a water pill and she does not take a water pill every day.hypercholesterolemia; did not get blood work done. 03/09/14 LDL 156. left elbow pain; occasionally will have pain in the elbow. painful when she lifts things wrong. would like shingles vaccine. chronic conditions (comments) hy perlipidemia; blood work 03/09/14 LDL 156, micro/creat 22, trig 122hypertension; walking intermittently.diabetes; reviewed diary of blood sugars 80-154. has been 1 year since last eye exam. will get cramping in her feet if she does not wear diabetic shoes.eyes; constanly picking crusties from her eyes.right middle finger; when she wakes up in the morning she has to straighten her right middle finger with the left hand and all day long her finger triggers. no previous injuries. chronic conditions (comments) HT N/DM/HLP: past due for appt. Due for labs. Hypoglycemia every couple weeks. Frequent night sweats. Usually happens in the AM. Often times skips meals. Takes Lantus 40 units at bedtime. diarrhea (comments) sudden onset 2 weeks ago, now intermittent. Well water. no others have diarrhea. Intermittent assoc abd pain and nausea. Colonoscopy 2009- . R hand pain (comments) Pain in 1 st and 3rd finger. Worse in the AM. Stiff, sensitive to touch. SX for 2 weeks. No change in activity. R handed. Prior injection in R thumb. Functional Status Date Functional Assessmen t No Information Instructions Date Instruction Additional Infor alena Increase OzempicRTO in 6 months Labs ordered Related to Type 2 diabetes mellitus with diabetic polyneuropathy, with long-term current use of insulin Continue current reg imenRTO in 6 months Labs ordered Related to Essential (primary) hypertension Continue current reg imenRTO in 6 months for MWELabs ordered Related to Stage 3a chronic kidney disease (CKD) Continue current reg imen. Improve diet. F/u in 4 months Related to Type 2 diabetes mellitus with diabetic nephropathy, with long-term current use of insulin Irrigation in office Related to Impacted cerumen, right ear Pt declined CT for l [place] cancer screening Related to Cigarette smoker Mamm ordered Related to Breas t cancer screening Check magnesium. Res ume pepcid if back in normal range Related to Hypomagnesemia Continue current reg imen. Labs in 4 months. F/u in 4 months Related to Type 2 diabetes mellitus with diabetic nephropathy, with long-term current use of insulin continue current regimen. Relate d to Essential (primary) hypertension Increase Ozempic to 1mg. f/u in 3 months. Hopefully will be able to wean off some other meds if continues to lose weight. Related to Type 2 diabetes mellitus with diabetic nephropathy, with long-term current use of insulin Increase jardiance. Start ozempic. F/u in 3 months Related to Type 2 diabetes mellitus with diabetic nephropathy, with long-term current use of insulin Increase jardiance. Start ozempic. F/u in 3 months Related to Stage 3a chronic kidney disease (CKD) Consider AC joint injection Rela kat to Acute pain of right shoulder Continue current reg imen. Labs ordered. F/u in 4 months Related to Type 2 diabetes mellitus without complication, with long-term current use of insulin Pt declined CT lung cancer screening at this time Related to Cigarette smoker Mamm ordered Related to Breas t cancer screening Add jardiance Related to Acute systolic heart failure Add jardiance. Discu ssed use and side effects. See eye doctor. F/u in 4 months Related to Type 2 diabetes mellitus with hyperglycemia, with long-term current use of insulin Prescribed manual wh eelchair for use within the home for ambulation due to SOB and fall risk Related to Acute systolic heart failure Stop omeprazole. Start pepcid Re lated to Gastroesophageal reflux disease, unspecified whether esophagitis present Inc lantus to 44 uni ts. F/u in 3 months Related to Type 2 diabetes mellitus with hyperglycemia, with long-term current use of insulin F/u with cardio Related to Acute systolic heart failure Continue current reg imen. F/u in September Related to Type 2 diabetes mellitus without complication, with long-term current use of insulin Wean off cigarettes Related to T obacco abuse Labs ordered. Treat based on results Related to Hypomagnesemia Labs ordered. Treat based on results Related to Hypocalcemia Continue current reg imen. F/u in 6 months Related to Type 2 diabetes mellitus without complication, with long-term current use of insulin Continue current regimen Related to Essential (primary) hypertension Stop prozac Related to Moder ate major depression Pt declined colonosc opy at this time Related to Colon cancer screening Pneumovax administered in office Related to Medicare annual wellness visit, subsequent Mamm ordered Related to Breas t cancer screening Ear irrigation in office Related to Impacted cerumen, right ear Quit smoking. Albute rol inhaler ordered Related to Chronic obstructive pulmonary disease, unspecified COPD type Labs ordered. [place] eye exam. F/u in 6 months for MWE Related to Type 2 diabetes mellitus without complication, with long-term current use of insulin Continue current regimen Related to Essential (primary) hypertension Prevnar given. Related to Medic are welcome exam increase exercise as tolerated. weight loss. low fat diet. continue current regimen. follow up in 4 months. Related to Essential (primary) hypertension increase exercise as tolerated. weight loss. DM diet. schedule DM eye exam. continue current regimen. follow up in 4 months. Related to Type 2 diabetes mellitus without complication, with long-term current use of insulin continue current regimen. Relate d to Hypercholesterolemia continue current reg imen. PhQ9 score 8 Related to Moderate major depression quit smoking. Related to Tobac co abuse observation. Related to Multi nodular goiter dexa scan ordered. t reat based on results. Related to Osteoporosis screening follow up with surgeon. Related to Primary osteoarthritis of right hip dexa scan ordered. t reat based on results. Related to Post-menopausal cologuard ordered. t reat based on results. Related to Colon cancer screening observation. Related to Thyro id nodule injection given. Related to Othe r bursitis of hip, left hip continue current regimen. Relate d to Hypercholesterolemia continue current reg imen.labs in 3 months. Related to Type 2 diabetes mellitus without complication continue current reg imen.f/u 3 months. 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 Patient Care Teams Name Effective Dates (start - stop) Status Members No Information
--- NOTE | 2025-05-25 13:11 | MM_ITS ---
Patient Name: IVETT OCONNOR MR#: [id number] : 1955 Exam Date: 05/25/2025 Ordering Doctor: NON-STAFF PHYSICIAN RADIOLOGY REPORT PROCEDURE: MM TOMOSYNTHESIS SCREENING BI COMPARISON: MM TOMOSYNTHESIS SCREENING BI, 10/09/2023. MM TOMOSYNTHESIS SCREENING BI, 05/14/2022. MM TOMOSYNTHESIS SCREENING BI, 01/10/2020. INDICATIONS: Screening Calculator Name NCI Breast Cancer Risk Assessment Tool 5 Year Breast Cancer Risk 1.90% Lifetime Breast Cancer Risk 5.90% Personal Breast Cancer No Personal Ovarian Cancer No Treatments None Family Cancers None LOCATION: The BREAST COMPOSITION: There are scattered areas of fibroglandular density. FINDINGS: DIAGNOSTIC CATEGORY 1--NEGATIVE. RIGHT BREAST: No significant suspicious finding. LEFT BREAST: No significant suspicious finding. RECOMMENDATIONS: ROUTINE MAMMOGRAM AND CLINICAL EVALUATION IN 12 MONTHS. Dictated by: Philip Parr DO on 05/25/2025 at 16:39 Approved by: Philip Parr DO on 05/25/2025 at 16:40
== END 2025-05-25 13:01 | disposition home or self-care (01) ==
DX: Z12.31 Encounter for screening mammogram for malignant neoplasm of breast (principal)
CPT/HCPCS: 77063; 77067